=== PATIENT | female | born 1945 | race Caucasian/White ===

== ENCOUNTER 2017-04-10 11:19 | Day surgery (SDC) | payer MEDICARE, BC ==
[~2017-04-10 11:19] MED LIST: Buffered Lidocaine 0.9% SYRIN* 5 ML/SYR SYRINGE INTRADERM ONE
[2017-04-10] MEDS ORDERED: fentaNYL* 50 MCG/ML 2 ML VIAL (100 MCG VIAL) ONE (12:09)
[2017-04-10] MEDS ORDERED: Midazolam* 1 MG/ML 2 ML VIAL (2 MG) ONE ×2 (12:10→13:12)
[2017-04-10 13:44] VITALS: BP 119/75
[2017-04-10] MEDS ORDERED: Tetracaine 0.5% OPTH.SOL 4 ML* 1 DROP BTL ONE (14:25)
[2017-04-10] MEDS ORDERED: Lidocaine 1% MPF* 2 ML VIAL ONE (14:25)
[2017-04-10] MEDS ORDERED: Tropicamide 1% OPTH.SOL* BTL ONE (14:25)
[2017-04-10] MEDS ORDERED: Neomycin/Polymy/Dex OPHTH.OIN* 3.5 GM ONE (14:25)
[2017-04-10] MEDS ORDERED: Buffered Lidocaine 0.9% SYRIN* 5 ML/SYR SYRINGE ONE (14:25)
[2017-04-10] MEDS ORDERED: Flurbiprofen 0.03% OPTH.SOL* 2.5 ML BTL ONE (14:25)
[2017-04-10] MEDS ORDERED: Cyclopentolate 1% OPTH.SOL* 2 ML BTL ONE (14:25)
[2017-04-10] MEDS ORDERED: Phenylephrine 2.5% OPTH.SOL* 2 ML BTL ONE (14:25)
--- NOTE | 2017-04-11 03:01 | OP ---
DATE OF OPERATION: 04/10/17 - [facility] DATE OF : 47 SURGEON: Dr. Neftali Antonio. AUTO MACHINIST: None. ANESTHESIOLOGIST: Yury Flores DO ANESTHESIA: Topical with intravenous sedation. PRE-OP DIAGNOSIS: Cataract with glaucoma, left eye. POST-OP DIAGNOSIS: Cataract with glaucoma, left eye. OPERATIVE PROCEDURE: Phacoemulsification, cataract extraction with posterior chamber intraocular lens implant left eye and iStent placement left eye. COMPLICATIONS: None. BLOOD LOSS: None. DESCRIPTION OF PROCEDURE: The patient was brought to the operating room and received a small amount of intravenous sedation. A drop of Tetracaine was placed in her left eye. The patient was prepped and draped in the usual sterile fashion for ophthalmic surgery and attention was directed to the left eye where a speculum was placed. A para-centesis was created at the 5 o'clock position and 0.1 cc of 1% preservative-free lidocaine was injected into the anterior chamber followed by DisCoVisc. The eye was digitally stabilized while a 2.75 mm keratome was used to create a triplanar clear corneal incision at the 3 o'clock position. A continuous curvilinear capsulorrhexis was created with a cystotome and Utrata forceps. BSS on a cannula was used to hydrodissect the lens from the capsule. Phacoemulsification was performed in a divide-and- conquer technique to create 4 fragments which were removed. Residual cortical material was removed with irrigation and aspiration. DisCoVisc was used to inflate the capsular bag. An AU00T0 22.0 diopter lens was folded and inserted into the capsular bag. Supplemental DisCoVisc was used to deepen the anterior chamber and coat the corneal epithelium. The patient's head was rotated away from the surgeon and a microscope was rotated towards the surgeon. An iStent was placed into the anterior chamber and gonioprism was placed on the surface of the eye. Under direct visualization, the iStent was manipulated and inserted into the trabecular meshwork nasally. The iStent heat and vent aircraft mechanic and gonioprism were removed. The patient's head was returned to an upright position and the microscope was returned to a neutral position. Irrigation and aspiration was performed to remove viscoelastic from the eye. BSS on a cannula was used to hydrate the corneal stroma and seal the wound. At the end of the case the pupil was round and the lens was centered and stable. The eye pressure appeared normal. The iStent was in place. The wound was water tight. The speculum was removed and topical Maxitrol ointment was placed on the surface of the eye. The eye was closed, patched, and shielded, and the patient was sent to recovery room in stable condition with postop instructions and follow-up appointment given. [id number]/[facility] #: [id number] ASHLEY
== END 2017-04-10 13:51 | disposition home or self-care (01) ==
LOC: OREAST 11:19
PROVIDERS: ATTEND Ophthalmology
DX: H25.13 Age-related nuclear cataract, bilateral (principal); H40.1131 Primary open-angle glaucoma, bilateral, mild stage; I10 Essential (primary) hypertension; F32.9 Major depressive disorder, single episode, unspecified; M19.90 Unspecified osteoarthritis, unspecified site; Z88.8 Allergy status to other drugs, medicaments and biological substances; Z87.891 Personal history of nicotine dependence; G89.4 Chronic pain syndrome; E78.00 Pure hypercholesterolemia, unspecified
CPT/HCPCS: A9270-GY; C1783; J2250; J3010; V2632

== ENCOUNTER 2017-04-17 08:57 | Day surgery (SDC) | payer MEDICARE, BC ==
[~2017-04-17 08:57] MED LIST changes: +Acetaminophen TAB* 325 MG PO PRN; +Buffered Lidocaine 0.9% SYRIN* 5 ML/SYR SYRINGE ONE; +Cyclopentolate 1% OPTH.SOL* 2 ML BTL ONE; +Flurbiprofen 0.03% OPTH.SOL* 2.5 ML BTL ONE; +Lidocaine 1% MPF* 2 ML VIAL ONE; +Neomycin/Polymy/Dex OPHTH.OIN* 3.5 GM ONE; +Phenylephrine 2.5% OPTH.SOL* 2 ML BTL ONE; +Tetracaine 0.5% OPTH.SOL 4 ML* 1 DROP BTL ONE; +Tropicamide 1% OPTH.SOL* BTL ONE
[2017-04-17] MEDS ORDERED: Midazolam* 1 MG/ML 2 ML VIAL (2 MG) ONE ×2 (09:44→09:57)
[2017-04-17] MEDS ORDERED: fentaNYL* 50 MCG/ML 2 ML VIAL (100 MCG VIAL) ONE (09:44)
[2017-04-17 10:22] VITALS: BP 120/70
--- NOTE | 2017-04-18 04:20 | OP ---
DATE OF OPERATION: 04/17/17 - [facility] DATE OF : 47 SURGEON: Neftali Antonio MD WOOD BORER: None. ANESTHESIOLOGIST: Milagro Rodriguez MD ANESTHESIA: Topical with intravenous sedation. PRE-OP DIAGNOSIS: Cataract with glaucoma, right eye. POST-OP DIAGNOSIS: Cataract with glaucoma, right eye. OPERATIVE PROCEDURE: Phacoemulsification and cataract extraction with posterior chamber intraocular lens implant, right eye and iStent implant, right eye. COMPLICATIONS: None. BLOOD LOSS: None. DESCRIPTION OF PROCEDURE: The patient was brought to the operating room and given a small amount of intra-venous sedation. A drop of tetracaine was placed into her right eye. The patient was prepped and draped in the usual sterile fashion for ophthalmic surgery and attention was directed to the right eye where a speculum was placed. A paracentesis was created at the 11 o'clock position and 0.1 cc of 1% preservative-free lidocaine was injected into the anterior chamber followed by DisCoVisc. The eye was digitally stabilized while a 2.75-mm keratome was used to create a triplanar clear corneal incision at the 9 o'clock position. A continuous curvilinear capsulorrhexis was created using a cystotome and Utrata forceps. BSS on a cannula was used to hydrodissect the lens from the capsule. Phacoemulsification was performed in a divide-and- conquer technique to create 4 fragments, which were removed. Residual cortical material was removed with irrigation and aspiration. DisCoVisc was used to inflate the capsular bag. An AUOOTO 23.0 diopter lens was folded and inserted into the capsular bag. Supplemental DisCoVisc was then placed in the anterior chamber to deepen it. DisCoVisc was also placed on the surface of the eye. The patient's head was rotated away from the surgeon and the microscope was rotated toward the surgeon. A gonioprism was placed on the surface of the eye and iStent was introduced into the anterior chamber upon an medical practice administrator. Under direct visualization, the iStent was inserted into the nasal trabecular meshwork. The medical practice administrator and the gonioprism were removed. The patient's head and the microscope were returned to a neutral position. Viscoelastic was removed from the eye using irrigation and aspiration. BSS on a cannula was used to hydrate the corneal stroma and seal the wound. At the end of the case, the pupil was round, the lens was centered, the iStent was in place, the eye pressure appeared normal and the wound appeared watertight. The speculum was removed and topical Maxitrol ointment was placed on the surface of the eye. The eye was closed, patched and shielded, and the patient was sent to the recovery room in stable condition, with postop instructions and followup appointment given. [id number]/[facility] #: [id number] MTDMohsen
== END 2017-04-17 10:18 | disposition home or self-care (01) ==
LOC: OREAST 08:57
PROVIDERS: ATTEND Ophthalmology
DX: H25.11 Age-related nuclear cataract, right eye (principal); H40.9 Unspecified glaucoma; I10 Essential (primary) hypertension; E78.5 Hyperlipidemia, unspecified
CPT/HCPCS: A9270-GY; C1783; J2250; J3010; V2632

== ENCOUNTER 2018-12-11 07:30 | Inpatient (IN) | payer MEDICARE, OTHER ==
--- NOTE | 2018-12-08 21:02 | HP ---
PREOPERATIVE HISTORY AND PHYSICAL: DATE OF ADMISSION/SURGERY: 12/18/18 DATE OF OFFICE VISIT: 12/05/18 ATTENDING SURGEON: Dr. Trevor Morillo.* (DICTATED BY CUCA DAIGLE) PROCEDURE: Right total shoulder reverse. CHIEF COMPLAINT: Right shoulder pain. HISTORY OF PRESENT ILLNESS: Nichelle is a 73-year-old female who presents to clinic for right shoulder pain due to rotator cuff tear arthropathy. She has failed conservative measures and therefore, agreed to undergo a right total shoulder reverse with Dr. Morillo on 12/18/18. PAST MEDICAL HISTORY: Hypertension, high cholesterol, osteoarthritis, depression, history of alcohol addiction, IBS, osteopenia, and chronic back pain. PAST SURGICAL HISTORY: Right hand surgery, right total knee replacement, left arm surgery, cholecystectomy, and appendectomy. The patient denies prior complications with anesthesia. MEDICATIONS: 1. Celebrex 200 mg 1 by mouth twice a day. 2. Citalopram 30 mg 1 by mouth every day. 3. Seroquel 25 mg 3 tablets by mouth. 4. Lumigan 1 drop each eye. 5. Timolol 1 drop each eye. 6. Atorvastatin 10 mg 1 by mouth every day. 7. Hydrocodone/acetaminophen 5/325 mg 1 every 4 to 6 hours as needed. 8. Chlorthalidone 25 mg 1 by mouth every day. 9. Lorazepam 1 mg as needed. ALLERGIES: ADHESIVE TAPE. FAMILY HISTORY: Positive for hypertension and cancer. SOCIAL HISTORY: She is retired. She is a former smoker, quit 40 years ago. She reports rare alcohol consumption. She is left hand dominant. REVIEW OF SYSTEMS: A 14-point review of systems was completed and reviewed with the patient, positive for current complaint, otherwise negative. Denies fevers, chills, chest pain, shortness of breath, history of bleeding disorder, history of DVT or PE. PHYSICAL EXAMINATION GENERAL: A 73-year-old well-developed, well-nourished female in no acute distress. VITAL SIGNS: Height 68, weight 177. Pulse 94, blood pressure 140/96, respiratory rate 15, temperature 96.6. BMI 26.9. HEENT: Normocephalic, atraumatic. PERRLA. NECK: Supple. Throat clear. PULMONARY: Lungs are clear to auscultation bilaterally. No wheezing, rhonchi, or rales. CARDIAC: Regular rate and rhythm. S1 and S2. No murmurs, gallops, or rubs. No edema. ABDOMEN: Positive bowel sounds. Soft and nontender. NEUROLOGIC: Alert and oriented x3. Cranial nerves are grossly intact. MUSCULOSKELETAL: Right upper extremity: Skin is intact. No warmth or erythema. Forward flexion 150. Abduction 120. External rotation to 45. +4/5 strength to rotator cuff testing with pain. Positive impingement, Speed, Rodriguez-Da, [place]. +2 radial pulse. Sensation intact to light touch distally. DIAGNOSTIC STUDIES/LAB DATA: MRI revealed full thickness tear of the supraspinatus as well as subscapularis tendon. IMPRESSION: Right shoulder rotator cuff arthropathy. PLAN: The patient is scheduled to undergo right total shoulder reverse with Dr. Morillo on 12/18/18. She will follow up in 10 to 14 days postop for followup and suture removal. Oxycodone will be used for postop pain management. CUCA DAIGLE [id number]/[facility] #: [id number] MTDMohsen
[2018-12-17] MEDS ORDERED: Buffered Lidocaine 1% SYRIN* 1 ML/SYRINGE INTRADERM ONE (12:03)
[2018-12-18] MEDS ORDERED: Gabapentin CAP(*) 300 MG PO ONE (06:00)
[2018-12-18] MEDS ORDERED: Famotidine IV* 10 MG/ML 2 ML (20 mg) IV ONE (06:00)
[2018-12-18] MEDS ORDERED: Lactated Ringers 1000 ML Bag* 1,000 ML IV SCH (06:00)
--- OUTSIDE RECORDS SUMMARY | 2018-12-18 06:41 | XMS REPORT | Continuity of Care Document ---
:1945 External Reference #:[id number] Author Name Barbara Bales Care Team Providers Name Role Phone HCP/LW on file Primary Care Physician Unavailable Payers Date Identification Numbers Payment Provider Subscriber Effective: Policy Number: [id number] [place] [employer] Nichelle Hartman 2011 PayID: [id number] [address] [place] [address] Policy Number: [id number] [facility] Nichelle Hartman PayID: [id number] [address] [place] [address] Effective: 2011 Policy Number: [employer] Alicia/Ppo/Hmo/Pos Nichelle Hartman [id number] Expires: 2017 PayID: [id number] [address] [address] [place] [address] Advance Directives Description No Information Available Problems Date Description Provider Status Onset: 10/14/2004 Pure hypercholesterolemia Michelle Olivo M.D. Onset: 06/09/2005 Localized, primary osteoarthritis Tono Tyson Active of the hand Manolo Onset: 01/20/2009 Open-angle glaucoma Michelle Olivo M.D. Onset: 05/26/2013 Chronic pain syndrome Tono Tyson Active Manolo Onset: 12/16/2013 Chronic nonalcoholic liver disease Tono Tyson Active Manolo Onset: 07/10/2018 Impaired fasting glycaemia Ellie Trejo PA Active Onset: 06/15/2010 Essential hypertension Resolved Resolved: 05/26/2013 Family History Date Family Member(s) Observation Comments : (age 95 Father due to Old Age Years) : (age 78 Mother due to Stroke multiple strokes little Years) Mother Obesity Mother Depression Mother Gallbladder Disease Number of Siblings Siblings: 3 First Brother Lymphoma Second Brother AAA W OBST S/P BYPASS Third Brother Glaucoma Third Brother Hypertension Social History Type Date Description Comments Sex Unknown Education Highest level of education completed is college Marital Status Patient is Employment Not currently working retired other than dog trg Tobacco Use Reviewed: 04/06/17 Denies Cigarette Use Tobacco Use Start: Unknown End: Former Cigarette Smoker quit ~[id number] Unknown ETOH Use 04/06/2017 Occasionally consumes 1 glass of wine or alcohol a beer on Sundays Recreational Drug Use Denies Drug Use Tobacco Use Reviewed: 11/27/18 Non Smoker / No Tobacco Tobacco Use Start: Unknown End: Patient is a former Unknown smoker Smoking Status Reviewed: 11/27/18 Non Smoker / No Tobacco Exercise Type/Frequency Exercises regularly. Current Walks daily ~1mi, limited by achilles pain. Active around her home and w/ her dog. Sun Exposure Moderate amount of sun exposure. Uses sunscreen Seat Belt/Car Seat Always uses a seat belt Currently Active The patient is currently not sexually active Age 1st Kake First intercourse was at age 22 # Partners in a Lifetime The patient has had 1 sexual partner Allergies, Adverse Reactions, Alerts Date Description Reaction Status Severity Comments 04/06/2017 Bimatoprost Active redness 06/13/2004 NKDA Inactive Medications Medication Date Status Form Strength Qnty SIG Indications Ordering Provider Quetiapine Active Tablets 25mg 90tabs 3 tabs by Sopstella, Fumarate 017 mouth at Sergio, bedtime D.O. Escitalopram Active Tablets 10mg 30tabs 1 tablet Silcoff, Oxalate 017 daily in Cameron, the M.D. morning; for mood (take along with a 20mg tablet for total of 30mg) Escitalopram Active Tablets 20mg 30tabs 1 tablet Silcoff, Oxalate 017 daily in Cameron, the M.D. morning; for mood (take along with a 10mg tablet for total of 30mg) Chlorthalidone Active Tablets 25mg 90tabs take 1 Z01.818 Silcoff, 015 tablet by Cameron, mouth M.D. once daily Hydrocodone-Aceta Active Tablets 5-325mg 240tab 1-2 four M15.0 Sopmamta douglasophen 014 s times a Sergio, day as D.O. needed for pain M75.80 G89.4 Celebrex 05/22/2008 Active Capsules 200mg 180caps 1 by mouth M15.1 Cameron Pena, twice a day M.D. M15.0 Lorazepam Active Tablets 0.5mg 30tabs 1 po qhs for 333.99 Filler, sleep; january Dr Doyle repeat prn after 1 hr Atorvastatin Active Tablets 10mg 90tabs take 1 tablet Silcoff, Calcium by mouth once Cameron, daily M.DKelsey [facility] B-12 08/02/2015 - Hx Tablets 5000mc 180tabs or 1000mcg D51.8 Sopchak, 05/22/2017 Sub g sublingually Sergio, every 4 hours D.O. as needed for fatigue/redd/de pression Multivitamins 08/02/2015 - Hx Capsules 1 by mouth D51.8 Sopnafisak, 04/05/2017 once a day Sergio, D.O. Quetiapine 04/29/2015 - Hx Tablets 25mg 90tabs 3 tablets Silcoff, Fumarate 09/13/2017 daily in the Cameron, evening M.DKelsey Hydrocodone-Ceferino 07/21/2014 - Hx Solution 10-325 40units 1-2 q id prn 338.4 Tono taminophen 07/31/2014 mg/15M pain A. L Manolo Tyson Oxycodone/Aceta 12/12/2013 - Hx Tablets 5-325m Unknown minophen 02/25/2014 g Hydrocodone/Ceferino 11/21/2013 - Hx Tablets 5-325m 200tabs 1-2 four 715.09 Tono taminophen 04/06/2014 g times a day A. as needed stella Tyson M.D. 726.19 338.4 Valtrex 11/21/2013 - Hx Tablets 1gm 21tabs 1 tid for 053.9 Tono A. 11/28/2013 7 day Manolo Tyson Oxycodone/Acetamin 11/20/2013 - Hx Tablets 5-325m 15tabs 1-2 po Unknown ophen 11/20/2013 g q4h prn for severe pain Oxycodone/Acetamin 11/17/2013 - Hx Tablets 5-325m er med Unknown ophen 11/23/2013 g Cholestyramine 06/17/2012 - Hx Powder 4GM/Do 239.400gm 1 packet 787.91 Tono Bobby Light 11/21/2013 se or 1 elsa Tyson q M.DKelsey am prn 579.8 Lipitor 10/23/2011 - Hx Tablets 10mg 90tabs 1 po qd to 272.0 Silcoff, 02/24/2014 reduce Cameron, cholesterol M.DKelsey Amoxicillin/Cl 01/12/2011 - Hx Tablets 875-125 20tabs 1 tab po bid x 461.2 Silcoff, avulanate 04/13/2011 mg 10 Cameron, Potassium M.D. Fluconazole 01/12/2011 - Hx Tablets 150mg 2tabs 1 tab po q 461.2 Silcoff, 03/13/2012 week then 1 Cameron, tab 8 days M.D. later Lidoderm 06/15/2010 - Hx Patches 5% 15units 1 patch to on Silcoff, 12/14/2011 each knee q12h Cameron, on then q12h M.D. off [place] Nail 04/27/2010 - Hx Solution 8% 1bottle apply to nails 110.1 Silcokailee Lacquer 03/13/2012 [facility] Manolo Barnes Hydrocodone/Ac 03/31/2010 - Hx Tablets 5-325mg 200tabs 1-2 qid prn 715.09 Tono Bobby etaminophen 11/21/2013 pain Code D Manolo Tyson 715.14 726.19 Nasonex 01/31/2010 - Hx Suspension 50mcg/Act 1vial 2 sprays to 477.9 Tono 04/29/2015 both A. nostrils Neisha once daily M.DKelsey Tylenol Extra 06/10/2009 - Hx Tablets 500mg 2 tab po q [facility] Strength For 10/03/2009 6h prn pain A. Arthritis Pain Manolo Tyson Bufferin Extra 05/22/2008 - Hx Tablets 500mg 2 tabs q [facility] Strength 05/22/2008 6hsalternate A. s w/other genna Tyson M.D. Amoxicillin 08/12/2007 - Hx Capsules 250mg 30caps 1 tid for 465.9 [facility] 08/22/2007 ten days Kanu Tyson M.D. void after 10 days Triamcinolone 10/06/2006 - Hx Cream 0.1% 30gm Apply To Tono Acetonide 04/27/2008 Affected A. Area bid And orin Tysonn M.DKelsey Pain/Itch For Maximum 10 Days Ultravate 04/05/2006 - Hx Cream 0.05% 50gm apply to 692.6 Tono 04/12/2006 affected A. area tid for Neisha 7 days max M.DKelsey Prilosec 04/05/2006 - Hx Capsules 20mg 30caps 1 po qd 719.41 [facility] 05/05/2006 Kanu Tyson M.D. Lipitor 02/15/2006 - Hx Tablets 10 90tabs 1 qpm for [facility] 12/28/2009 cholesterol Kanu Tyson M.D. Ibuprofen 12/01/2005 - Hx Tablets 800mg 100tab 1 po tid 789.04 Silcoff, 05/22/2008 s p.c.prn for stella Barnes M.D. Pyridium 11/28/2005 - Hx Tablets 100mg 18tabs 1-2 PO tid 788.1 Silcoff, 04/16/2006 prn Bladder Stella Barnes M.D. Celexa 06/09/2005 - Hx Tablets 40mg 1 and A 1/2 Silcoff, 05/22/2008 po qd Manolo Barnes Naftin 12/09/2004 - Hx Gel 1% 60gm apply to 110.1 [facility] 04/27/2009 affected A. area qd Manolo Tyson Prednisone 06/20/2004 - Hx Tablets 10mg 50tabs 2 a day for 053.9 Tono 12/09/2004 a week then A. 1 and 1/2 a Neisha, day for a M.DKelsey week then 1 a day for a week Valtrex 06/13/2004 - Hx Caplets 1,000mg 14caps 1 tid for a 053.9 Tono 06/20/2004 total of 7 A. days with charly Tyson M.D. you got Vicodin Es 06/13/2004 - Hx Tablets 7.5mg;750 20tabs 1/2-1 po q 053.9 Tono 12/09/2004 mg 6hr as A. needed for stella Tyson M.D. Neurontin 04/01/2004 - Hx Tablets 600[facility] Manolo Sánchez Neurontin 04/01/2004 - Hx Tablets 600mg 20tabs [facility] (pleaseotify Princess, patient that Deena.D. you have the prescription . Lipitor 11/17/2003 - Hx Tablets 10mg 90tabs 1 qpm at [facility] 02/15/2006 supper for Kanu Tyson M.D. Flonase 11/17/2003 - Hx [place] 50mcg/[place] 1units 1 intranasal [facility] 01/17/2009 bid Kanu Tyson M.D. Celexa 09/25/2003 - Hx Tablets 20mg 30tabs 1 po qd Silcoff, 06/09/2005 Manolo Barnes Tamiflu 09/11/2003 - Hx Capsules 75mg 10caps 1 po bid X 5 Silcoff, 06/13/2004 Days Manolo Barnes Effexor XR - Hx Capsules 150mg 0caps 1 po qd Unknown 06/09/2005 Seroquel - Hx Tablets 200mg 0tabs 2 po qhs Filler, 12/10/2014 Dr Doyle Celexa - Hx Tablets 40mg 1 PO qd Filler, 05/26/2013 Dr Doyle Timolol Maleate - Hx Solution 0.5% 1 drop both Unknown 05/22/2017 eyes Lumigan - Hx Solution 1 gtt eye Unknown 04/06/2017 hs, Both eyes Hydrocodone/Ceferino - Hx Tablets 5-325mg Unknown taminophen 11/20/2013 Amoxicillin - Hx Capsules 500mg Unknown 12/15/2013 Medications Administered in Office Medication Date Status Form Strength Qnty SIG Indications Ordering Provider B12 Injection Administered Injection Sopchak, 015 Sergio, D.O. SC/Im Administered Injection Sopchak, Injections 015 Sergio, D.O. injection, Administered Injection Tono bridges, 10 mg 009 Manolo Tyson injection, Administered Injection Tono bridges, 10 mg 009 Manolo Tyson Immunizations CPT Code Status Date Vaccine Lot # [id number] Given 10/30/2018 Shingrix Zoster (Shingles) Vaccine (HZV) Recomb,Subnit,Adjuvanted 66587 Given 05/23/2017 Influenza Virus Vaccine, Quadrivalent, Split, [id number] Preservative Free 53304 Given 05/19/2016 Influenza Vaccine Split Virus Preservative Free Im [id number] U-Flu Given 07/12/2015 Influenza,Unspecified 48472 Given 04/30/2015 Prevnar 13 [id number] 16311 Given 06/17/2012 Flu, Split Virus 3Yrs [id number] 40892 Given 10/23/2011 Pneumococcal Immunization [id number] 89702 Given 07/07/2011 Zostavax [id number] 12138 Given 05/11/2011 Flu, Split Virus 3Yrs 61249 Given 05/11/2011 Flu, Split Virus 3Yrs 75809 Given 06/15/2010 Flu, Split Virus 3Yrs [id number] 33550 Given 02/18/2010 Adacel or Boostrix, TDaP [id number] 98327 Given 06/10/2009 Flu, Split Virus 3Yrs [id number] 29485 Given 07/04/2008 Flu, Split Virus 3Yrs [id number] 45051 Given 07/19/2007 Flu, Split Virus 3Yrs [id number] 04749 Given 08/20/2006 Flu, Split Virus 3Yrs [id number] 35653 Given 06/30/2005 Flu, Split Virus 3Yrs 13350 Given 06/30/2005 Flu, Split Virus 3Yrs 48144 Given 10/14/2004 Td Immunization [id number] Refused 05/29/2014 Flu, Split Virus 3Yrs Vital Signs Date Vital Result Comment 11/27/2018 3:49pm BP Systolic 126 mmHg BP Diastolic 76 mmHg Heart Rate 87 /min O2 % BldC Oximetry 96 % Body Temperature 97.8 F Height 67 inches 5'7" Weight 174.00 lb w/shoes BMI (Body Mass Index) 27.2 kg/m2 07/10/2018 2:00pm BP Systolic 142 mmHg BP Diastolic 78 mmHg BP Systolic Recheck 136 mmHg BP Diastolic Recheck 78 mmHg Height 67 inches 5'7" Weight 168.00 lb BMI (Body Mass Index) 26.3 kg/m2 05/23/2017 9:33am BP Systolic 126 mmHg BP Diastolic 74 mmHg Weight 174.00 lb 04/06/2017 3:42pm BP Systolic 120 mmHg BP Diastolic 60 mmHg Height 67 inches 5'7" Weight 172.00 lb BMI (Body Mass Index) 26.9 kg/m2 2016 2:26pm BP Systolic 116 mmHg BP Diastolic 70 mmHg Heart Rate 70 /min Respiratory Rate 16 /min Height 68 inches 5'8" Weight 176.00 lb BMI (Body Mass Index) 26.8 kg/m2 05/19/2016 1:11pm BP Systolic 136 mmHg BP Diastolic 72 mmHg Weight 173.00 lb 01/14/2016 1:00pm BP Systolic 120 mmHg BP Diastolic 70 mmHg Weight 175.00 lb with sneakers 10/15/2015 1:02pm BP Systolic 128 mmHg k BP Diastolic 78 mmHg k Heart Rate 70 /min Respiratory Rate 16 /min Height 68.25 inches 5'8.25" with sneakers Weight 170.50 lb with sneakers BMI (Body Mass Index) 25.7 kg/m2 08/02/2015 12:57pm BP Systolic 150 mmHg BP Diastolic 94 mmHg BP Systolic Recheck 158 mmHg recheck BP Diastolic Recheck 85 mmHg recheck 07/23/2015 3:17pm BP Systolic 172 mmHg BP Diastolic 98 mmHg 07/12/2015 5:11pm BP Systolic 152 mmHg BP Diastolic 90 mmHg Weight 172.00 lb with shoes 04/30/2015 4:31pm BP Systolic 122 mmHg BP Diastolic 66 mmHg Heart Rate 70 /min Respiratory Rate 16 /min Weight 171.00 lb 12/11/2014 1:49pm BP Systolic 150 mmHg BP Diastolic 86 mmHg Height 68 inches 5'8" shoes on Weight 172.00 lb shoes on BMI (Body Mass Index) 26.1 kg/m2 08/28/2014 10:02am BP Systolic 130 mmHg BP Diastolic 84 mmHg Weight 171.00 lb 05/29/2014 11:35am BP Systolic 148 mmHg BP Diastolic 92 mmHg Height 67 inches Weight 167.00 lb BMI (Body Mass Index) 26.2 kg/m2 03/16/2014 11:00am BP Systolic 128 mmHg BP Diastolic 82 mmHg Heart Rate 80 /min Height 67 inches 5'7" Weight 169.00 lb BMI (Body Mass Index) 26.5 kg/m2 12/16/2013 3:40pm BP Systolic 176 mmHg wk obese cuff BP Diastolic 94 mmHg wk obese cuff Heart Rate 70 /min Weight 175.00 lb 11/21/2013 11:24am BP Systolic 148 mmHg BP Diastolic 105 mmHg Heart Rate 80 /min rrr Height 67.5 inches 5'7.50" Weight 174.00 lb BMI (Body Mass Index) 26.8 kg/m2 05/26/2013 10:04am BP Systolic 146 mmHg BP Diastolic 92 mmHg BP Systolic Recheck 139 mmHg BP Diastolic Recheck 82 mmHg Heart Rate 70 /min Height 67 inches 5'7" Weight 171.00 lb BMI (Body Mass Index) 26.8 kg/m2 12/23/2012 10:06am BP Systolic 136 mmHg BP Diastolic 82 mmHg Weight 173.00 lb 10/21/2012 11:58am BP Systolic 132 mmHg BP Diastolic 82 mmHg Weight 174.00 lb Last Menstrual Period 0 09/23/2012 9:08am BP Systolic 128 mmHg BP Diastolic 98 mmHg BP Systolic Recheck 13 mmHg BP Diastolic Recheck 85 mmHg Heart Rate 70 /min Weight 173.00 lb Last Menstrual Period 0 08/24/2012 9:41am BP Systolic 138 mmHg BP Diastolic 94 mmHg Weight 173.00 lb Last Menstrual Period 0 06/17/2012 2:27pm BP Systolic 144 mmHg BP Diastolic 88 mmHg Heart Rate 80 /min Respiratory Rate 16 /min Height 67 inches 5'7" Weight 175.00 lb BMI (Body Mass Index) 27.4 kg/m2 Last Menstrual Period 0 03/14/2012 10:44am BP Systolic 126 mmHg BP Diastolic 80 mmHg Weight 170.00 lb 12/18/2011 12:54pm BP Systolic 154 mmHg BP Diastolic 78 mmHg BP Systolic Recheck 141 mmHg BP Diastolic Recheck 80 mmHg Heart Rate 65 /min Respiratory Rate 16 /min Weight 172.00 lb Last Menstrual Period 0 10/23/2011 1:09pm BP Systolic 138 mmHg BP Diastolic 90 mmHg BP Systolic Recheck 130 mmHg BP Diastolic Recheck 73 mmHg Heart Rate 70 /min rrr Weight 168.00 lb Last Menstrual Period 0 09/25/2011 9:20am BP Systolic 143 mmHg BP Diastolic 84 mmHg Heart Rate 75 /min Height 67.5 inches 5'7.50" Weight 171.00 lb BMI (Body Mass Index) 26.4 kg/m2 07/07/2011 11:47am BP Systolic 123 mmHg BP Diastolic 71 mmHg Heart Rate 67 /min Weight 168.00 lb 04/14/2011 2:17pm BP Systolic 138 mmHg BP Diastolic 74 mmHg Heart Rate 80 /min Respiratory Rate 16 /min Height 67 inches 5'7" Weight 169.00 lb BMI (Body Mass Index) 26.5 kg/m2 01/12/2011 11:41am BP Systolic 120 mmHg BP Diastolic 78 mmHg Heart Rate 75 /min Body Temperature 98.3 F Height 66.75 inches 5'6.75" Weight 171.00 lb BMI (Body Mass Index) 27.0 kg/m2 Last Menstrual Period 0 08/15/2010 11:18am BP Systolic 108 mmHg BP Diastolic 77 mmHg Heart Rate 70 /min Weight 168.00 lb 07/06/2010 10:53am BP Systolic 131 mmHg BP Diastolic 87 mmHg Heart Rate 70 /min Body Temperature 98.9 F Weight 167.00 lb 06/15/2010 9:02am BP Systolic 146 mmHg BP Diastolic 90 mmHg Heart Rate 63 /min Weight 165.00 lb 05/18/2010 1:09pm BP Systolic 108 mmHg BP Diastolic 70 mmHg Weight 163.00 lb Last Menstrual Period 0 04/27/2010 2:00pm BP Systolic 130 mmHg BP Diastolic 83 mmHg Heart Rate 67 /min Weight 164.00 lb 02/18/2010 3:04pm BP Systolic 118 mmHg please recheck this BP Diastolic 82 mmHg please recheck this Heart Rate 80 /min Respiratory Rate 16 /min Height 66.75 inches 5'6.75" Weight 166.00 lb BMI (Body Mass Index) 26.2 kg/m2 Last Menstrual Period 0 unknown 02/12/2010 10:31am BP Systolic 116 mmHg BP Diastolic 80 mmHg Body Temperature 98.1 F Weight 172.00 lb Last Menstrual Period 0 01/31/2010 12:26pm BP Systolic 142 mmHg BP Diastolic 78 mmHg Heart Rate 73 /min Weight 174.00 lb 01/14/2010 9:57am BP Systolic 120 mmHg BP Diastolic 70 mmHg BP Systolic Recheck 140 mmHg pt's wrist monitor she brought in BP Diastolic Recheck 79 mmHg pt's wrist monitor she brought in Heart Rate 65 /min 01/10/2010 10:20am BP Systolic 163 mmHg BP Diastolic 74 mmHg BP Systolic Recheck 134 mmHg BP Diastolic Recheck 90 mmHg Heart Rate 61 /min Weight 174.00 lb 12/28/2009 1:58pm BP Systolic 134 mmHg BP Diastolic 88 mmHg Weight 176.00 lb 08/27/2009 9:13am BP Systolic 124 mmHg BP Diastolic 82 mmHg Weight 174.00 lb Last Menstrual Period 0 06/10/2009 11:00am BP Systolic 130 mmHg BP Diastolic 80 mmHg Weight 169.00 lb 04/27/2009 2:16pm BP Systolic 112 mmHg BP Diastolic 74 mmHg Weight 169.00 lb 01/29/2009 2:31pm BP Systolic 114 mmHg BP Diastolic 86 mmHg Heart Rate 80 /min Respiratory Rate 16 /min Height 67 inches 5'7" Weight 170.00 lb w/out shoes BMI (Body Mass Index) 26.6 kg/m2 05/22/2008 1:30pm BP Systolic 118 mmHg BP Diastolic 74 mmHg Height 68 inches 5'8" Weight 169.50 lb BMI (Body Mass Index) 25.8 kg/m2 02/04/2008 12:58pm BP Systolic 110 mmHg BP Diastolic 78 mmHg Height 68 inches 5'8" Weight 169.00 lb BMI (Body Mass Index) 25.7 kg/m2 Last Menstrual Period 0 12/31/2007 3:02pm BP Systolic 130 mmHg BP Diastolic 70 mmHg Height 68 inches 5'8" Weight 168.00 lb BMI (Body Mass Index) 25.5 kg/m2 Last Menstrual Period 0 12/03/2007 1:24pm BP Systolic 132 mmHg BP Diastolic 80 mmHg Height 68 inches 5'8" Weight 170.00 lb BMI (Body Mass Index) 25.8 kg/m2 10/28/2007 2:48pm BP Systolic 130 mmHg BP Diastolic 78 mmHg Height 68 inches 5'8" Weight 167.00 lb BMI (Body Mass Index) 25.4 kg/m2 Last Menstrual Period 0 09/02/2007 3:42pm BP Systolic 110 mmHg BP Diastolic 70 mmHg Height 68 inches 5'8" Weight 166.00 lb BMI (Body Mass Index) 25.2 kg/m2 Last Menstrual Period 0 08/12/2007 4:00pm BP Systolic 138 mmHg BP Diastolic 82 mmHg Respiratory Rate 16 /min Body Temperature 98.6 F Height 68 inches 5'8" Weight 169.00 lb BMI (Body Mass Index) 25.7 kg/m2 Last Menstrual Period 0 07/19/2007 9:59am BP Systolic 128 mmHg BP Diastolic 70 mmHg Heart Rate 80 /min Height 68 inches 5'8" Weight 168.00 lb BMI (Body Mass Index) 25.5 kg/m2 06/11/2007 1:24pm BP Systolic 130 mmHg BP Diastolic 80 mmHg Height 68 inches 5'8" Weight 170.00 lb BMI (Body Mass Index) 25.8 kg/m2 Last Menstrual Period 0 04/22/2007 11:12am BP Systolic 150 mmHg BP Diastolic 84 mmHg Body Temperature 98.1 F Height 68 inches 5'8" Weight 174.00 lb BMI (Body Mass Index) 26.5 kg/m2 04/16/2007 1:15pm BP Systolic 162 mmHg BP Diastolic 78 mmHg Height 68 inches 5'8" Weight 174.00 lb BMI (Body Mass Index) 26.5 kg/m2 03/21/2007 12:57pm BP Systolic 132 mmHg BP Diastolic 80 mmHg Height 68 inches 5'8" Weight 174.00 lb BMI (Body Mass Index) 26.5 kg/m2 Last Menstrual Period 0 02/08/2007 11:16am BP Systolic 144 mmHg BP Diastolic 70 mmHg Height 68 inches 5'8" Weight 177.50 lb BMI (Body Mass Index) 27.0 kg/m2 11/19/2006 9:11am BP Systolic 144 mmHg BP Diastolic 82 mmHg Heart Rate 80 /min Respiratory Rate 16 /min Height 68 inches 5'8" Weight 175.00 lb BMI (Body Mass Index) 26.6 kg/m2 08/20/2006 1:55pm BP Systolic 138 mmHg BP Diastolic 86 mmHg BP Systolic Recheck 130 mmHg BP Diastolic Recheck 80 mmHg Heart Rate 80 /min Respiratory Rate 16 /min Height 68 inches 5'8" Weight 173.00 lb BMI (Body Mass Index) 26.3 kg/m2 05/17/2006 1:50pm BP Systolic 140 mmHg BP Diastolic 80 mmHg Heart Rate 80 /min Respiratory Rate 16 /min Height 68 inches 5'8" Weight 172.00 lb BMI (Body Mass Index) 26.1 kg/m2 04/05/2006 2:06pm BP Systolic 112 mmHg BP Diastolic 70 mmHg Body Temperature 98.5 F Height 68 inches 5'8" Weight 165.00 lb BMI (Body Mass Index) 25.1 kg/m2 Last Menstrual Period 0 02/13/2006 2:56pm BP Systolic 144 mmHg BP Diastolic 80 mmHg Heart Rate 80 /min Height 68 inches 5'8" Weight 164.00 lb BMI (Body Mass Index) 24.9 kg/m2 12/01/2005 5:15pm BP Systolic 190 mmHg BP Diastolic 105 mmHg Height 68 inches 5'8" Weight 160.00 lb BMI (Body Mass Index) 24.3 kg/m2 11/28/2005 11:26am BP Systolic 124 mmHg BP Diastolic 74 mmHg Body Temperature 97.9 F Height 68 inches 5'8" Weight 162.00 lb BMI (Body Mass Index) 24.6 kg/m2 10/27/2005 11:53am BP Systolic 130 mmHg BP Diastolic 66 mmHg Height 68 inches 5'8" Weight 162.00 lb BMI (Body Mass Index) 24.6 kg/m2 06/09/2005 1:17pm BP Systolic 160 mmHg BP Diastolic 78 mmHg BP Systolic Recheck 142 mmHg BP Diastolic Recheck 75 mmHg Heart Rate 70 /min rrr Respiratory Rate 16 /min Height 68 inches 5'8" Weight 163.00 lb BMI (Body Mass Index) 24.8 kg/m2 12/09/2004 4:38pm BP Systolic 128 mmHg BP Diastolic 78 mmHg Height 68 inches 5'8" Weight 166.00 lb BMI (Body Mass Index) 25.2 kg/m2 10/14/2004 10:34am BP Systolic 140 mmHg BP Diastolic 70 mmHg Heart Rate 80 /min RRR Respiratory Rate 16 /min Height 68 inches 5'8" Weight 170.00 lb BMI (Body Mass Index) 25.8 kg/m2 Last Menstrual Period [id number] 07/04/2004 5:02pm Height 68 inches 5'8" Weight 176.00 lb BMI (Body Mass Index) 26.8 kg/m2 06/20/2004 1:41pm BP Systolic 142 mmHg BP Diastolic 90 mmHg Heart Rate 90 /min Body Temperature 98.1 F Height 68 inches 5'8" Weight 179.00 lb BMI (Body Mass Index) 27.2 kg/m2 06/13/2004 5:26pm BP Systolic 140 mmHg BP Diastolic 90 mmHg Height 68 inches 5'8" Weight 177.00 lb BMI (Body Mass Index) 26.9 kg/m2 06/10/2004 4:01pm Heart Rate 80 /min 06/10/2004 3:25pm BP Systolic 126 mmHg BP Diastolic 86 mmHg Heart Rate 80 /min Respiratory Rate 16 /min Body Temperature 97.9 F Weight 179.00 lb Results Test Date Facility Test Result H/L Range Note Creatinine 08/14/2018 [facility] Creatinine 0.94 mg/dL N 0.51-0.95 [phone] Egfr Non- 58.7 >60 Egfr 71.0 >60 1 Laboratory test 08/14/2018 [facility] Blood Urea Nitrogen 22 mg/dL N 6-24 finding [phone] BUN Urinalysis Profile 07/16/2018 [facility] Urine Color Yellow [phone] Urine Appearance Clear Urine Specific [place] 1.028 N 1.010-1.030 Urine pH 5.0 N 5-9 Urine Urobilinogen Negative Negative Urine Ketones Trace Abnormal Negative Urine Protein 1+(30 mg/dL) Abnormal Negative Urine Leukocytes Negative Negative Urine Blood 2+ Abnormal Negative Urine Nitrite Negative Negative Urine Bilirubin Negative Negative Urine Glucose Negative Negative Urine White Blood Cell Absent Absent Urine Red Blood Cell 2+(6-10/hpf) Abnormal Absent Urine Bacteria Absent Absent Urine Squamous Epithelial Cell Present Abnormal Absent Laboratory test 07/15/2018 [facility] Hemoglobin A1c 5.9 % High 4.0- 5.6 2 finding [phone] (Glyco HGB) Lipid Profile 07/15/2018 [facility] Triglycerides 168 mg/dL 3 (Trig/Chol/HDL) [phone] Cholesterol 159 mg/dL 4 HDL Cholesterol 34.2 mg/dL 5 LDL Cholesterol 91 mg/dL 6 Comp Metabolic Panel 07/15/2018 [facility] Sodium 139 mmol/L N 135- 145 [phone] Potassium 4.0 mmol/L N 3.5-5.0 Chloride 104 mmol/L N 101-111 Co2 Carbon Dioxide 26 mmol/L N 22-32 Anion Gap 9 mmol/L N 2-11 Glucose 131 mg/dL High 70-100 Blood Urea Nitrogen 17 mg/dL N 6-24 Creatinine 0.85 mg/dL N 0.51-0.95 BUN/Creatinine Ratio 20.0 N 8-20 Calcium 9.8 mg/dL N 8.6-10.3 Total Protein 6.9 g/dL N 6.4-8.9 Albumin 4.4 g/dL N 3.2-5.2 Globulin 2.5 g/dL N 2-4 Albumin/Globulin Ratio 1.8 N 1-3 Total Bilirubin 1.00 mg/dL N 0.2-1.0 Alkaline Phosphatase 61 U/L N 34-104 Alt 19 U/L N 7-52 Ast 20 U/L N 13-39 Egfr Non- 65.9 >60 Egfr 79.8 >60 7 Laboratory test 05/23/2017 In House Hemoglobin A1c 5.8 finding Basic Metabolic Panel 04/09/2017 [facility] Sodium 138 mmol/L N 133- 145 [phone] Potassium 3.8 mmol/L N 3.5-5.0 Chloride 103 mmol/L N 101-111 Co2 Carbon Dioxide 28 mmol/L N 22-32 Anion Gap 7 mmol/L N 2-11 Glucose 128 mg/dL High 70-100 Blood Urea Nitrogen 20 mg/dL N 6-24 Creatinine 0.90 mg/dL N 0.51-0.95 BUN/Creatinine Ratio 22.2 High 8-20 Calcium 9.2 mg/dL N 8.6-10.3 Egfr Non- 61.9 N >60 Egfr 79.6 N >60 8 Laboratory test finding 04/09/2017 [facility] Alt 21 U/L N 7-52 [phone] Lipid Profile 04/09/2017 [facility] Triglycerides 192 mg/dL N 9 (Trig/Chol/HDL) [phone] Cholesterol 169 mg/dL N 10 HDL Cholesterol 28.4 mg/dL N 11 LDL Cholesterol 102 mg/dL N 12 Lipid Profile 10/15/2015 [facility] Triglycerides 221 mg/dL N 13 (Trig/Chol/HDL) [phone] Cholesterol 176 mg/dL N 14 HDL Cholesterol 36.4 mg/dL N 15 LDL Cholesterol 95 mg/dL N 16 Basic Metabolic Panel 10/15/2015 [facility] Sodium 136 mmol/L N 133- 145 [phone] Potassium 4.2 mmol/L N 3.5-5.0 Chloride 101 mmol/L N 101-111 Co2 Carbon Dioxide 28 mmol/L N 22-32 Anion Gap 7 mmol/L N 2-11 Glucose 99 mg/dL N 70-100 Blood Urea Nitrogen 18 mg/dL N 6-24 Creatinine 0.90 mg/dL N 0.51-0.95 BUN/Creatinine Ratio 20.0 N 8-20 Calcium 9.5 mg/dL N 8.6-10.3 Egfr Non- 62.1 N >60 Egfr 79.8 N >60 17 Laboratory test 10/15/2015 [facility] Ast (Sgot) 16 U/L N 13-39 18 finding [phone] Laboratory test 07/23/2015 [facility] Erythrocyte Sed Rate 18 mm/Hr N 0-40 finding [phone] TSH (Thyroid Stim Horm) 1.27 ?IU/mL N 0.34-5.60 Troponin-I (TnI) 0.00 ng/mL N <0.03 19 D Dimer Quantitative < 200 ng/mL N Less Than 230 20 Vitamin B12 202 pg/mL N [phone] 21 Comp Metabolic Panel 07/23/2015 [facility] Sodium 135 mmol/L N 133- 145 [phone] Potassium 4.4 mmol/L N 3.5-5.0 Chloride 102 mmol/L N 101-111 Co2 Carbon Dioxide 28 mmol/L N 22-32 Anion Gap 5 mmol/L N 2-11 Glucose 100 mg/dL N 70-100 Blood Urea Nitrogen 13 mg/dL N 6-24 Creatinine 0.70 mg/dL N 0.51-0.95 BUN/Creatinine Ratio 18.6 N 8-20 Calcium 9.6 mg/dL N 8.6-10.3 Total Protein 6.8 g/dL N 6.4-8.9 Albumin 4.4 g/dL N 3.2-5.2 Globulin 2.4 g/dL N 2-4 Albumin/Globulin Ratio 1.8 N 1-3 Total Bilirubin 0.70 mg/dL N 0.2-1.0 Alkaline Phosphatase 55 U/L N 34-104 Alt 13 U/L N 7-52 Ast 15 U/L N 13-39 Egfr Non- 83.2 N >60 Egfr 107.0 N >60 22 CBC Auto Diff 07/23/2015 [facility] White Blood Count 6.7 10^3/uL N 4.8-10.8 [phone] Red Blood Count 5.00 10^6/uL N 4.0-5.4 Hemoglobin 15.4 g/dL N 12.0-16.0 Hematocrit 46 % N 35-47 Mean Corpuscular Volume 93 fL N 80-97 Mean Corpuscular Hemoglobin 31 pg N 27-31 Mean Corpuscular HGB Conc 33 g/dL N 31-36 Red Cell Distribution Width 13 % N 10.5-15 Platelet Count 259 10^3/uL N 150-450 Mean Platelet Volume 7 um3 Low 7.4-10.4 Abs Neutrophils 4.0 10^3/uL N 1.5-7.7 Abs Lymphocytes 1.8 10^3/uL N 1.0-4.8 Abs Monocytes 0.7 10^3/uL N 0-0.8 Abs Eosinophils 0.1 10^3/uL N 0-0.6 Abs Basophils 0.1 10^3/uL N 0-0.2 Abs Nucleated RBC 0 10^3/uL N Granulocyte % 59.3 % N 38-83 Lymphocyte % 27.2 % N 25-47 Monocyte % 10.5 % High 1-9 Eosinophil % 1.5 % N 0-6 Basophil % 1.5 % N 0-2 Nucleated Red Blood Cells % 0.1 N Urine Drug Screen Inhouse 07/12/2015 In House Ua Cocaine - Ua Opiates + Ua Amphetamines - Urine Methanphetamines - Urine Benzodiazepines QN [place] + Urine Oxycodone QL + Lipid Profile 08/28/2014 [facility] Triglycerides 151 mg/dL N 23 (Trig/Chol/HDL) [phone] Cholesterol 136 mg/dL N 24 HDL Cholesterol 36.0 mg/dL N 25 LDL Cholesterol 70 mg/dL N 26 Laboratory test finding 08/28/2014 [facility] Ast 15 U/L N 13-39 [phone] Urine Micro Inhouse 03/16/2014 In House Ua WBC - Ua RBC 5-6 Ua Casts - Ua Epi many Ua Other sm clumps of RBC Ua Glucose - Ua Bilirubin - Ua Ketones - Ua Specific [place] 1.030 Ua Blood mod Ua PH 6.0 Ua Protein 1+ Ua Urobilinogen - Ua Nitrite - Ua Leukocytes - Urine Micro Inhouse 12/16/2013 In House Ua WBC - Ua RBC 12-14 Ua Casts - Ua Epi 0-2 Ua Other - Ua Glucose - Ua Bilirubin - Ua Ketones - Ua Specific [place] 1.025 Ua Blood 3+ Ua PH 6.0 Ua Protein tr Ua Urobilinogen - Ua Nitrite - Ua Leukocytes - Laboratory test finding 12/12/2013 [facility] Inr 0.93 0.85-1.06 [phone] Activated Partial Thrombo Time 32.5 seconds 24.0-36.1 CBC Auto Diff 12/12/2013 [facility] White Blood Count 6.6 10^3/uL 4.8-10.8 [phone] Red Blood Count 4.74 10^6/uL 4.0-5.4 Hemoglobin 14.9 g/dL 12.0-16.0 Hematocrit 43 % 35-47 Mean Corpuscular Volume 91 fL 80-97 Mean Corpuscular Hemoglobin 31 pg 27-31 Mean Corpuscular HGB Conc 35 g/dL 31-36 Red Cell Distribution Width 13 % 10.5-15 Platelet Count 254 10^3/uL 150-450 Mean Platelet Volume 7 um3 Low 7.4-10.4 Abs Neutrophils 3.8 10^3/uL 1.5-7.7 Abs Lymphocytes 1.9 10^3/uL 1.0-4.8 Abs Monocytes 0.6 10^3/uL 0-0.8 Abs Eosinophils 0.1 10^3/uL 0-0.6 Abs Basophils 0.1 10^3/uL 0-0.2 Abs Nucleated RBC 0.01 10^3/uL Granulocyte % 57.8 % 38-83 Lymphocyte % 29.4 % 25-47 Monocyte % 9.7 % High 1-9 Eosinophil % 2.0 % 0-6 Basophil % 1.1 % 0-2 Nucleated Red Blood Cells % 0.1 Comp Metabolic Panel 12/12/2013 [facility] Sodium 137 mmol/L 133- 145 [phone] Potassium 4.8 mmol/L 3.7-5.6 Chloride 106 mmol/L 101-111 Co2 Carbon Dioxide 25 mmol/L 22-32 Anion Gap 6 mmol/L 2-11 Glucose 112 mg/dL High 70-100 Blood Urea Nitrogen 13 mg/dL 6-24 Creatinine 0.67 mg/dL 0.51-0.95 BUN/Creatinine Ratio 19.4 8-20 Calcium 9.5 mg/dL 8.6-10.3 Total Protein 6.9 g/dL 6.4-8.9 Albumin 4.6 g/dL 3.2-5.2 Globulin 2.3 g/dL 2-4 Albumin/Globulin Ratio 2.0 1-3 Total Bilirubin 0.60 mg/dL 0.2-1.0 Alkaline Phosphatase 55 U/L 34-104 Alt 26 U/L 7-52 Ast 24 U/L 13-39 Egfr Non- 87.8 >60 Egfr 112.9 >60 27 Laboratory test finding 12/12/2013 [facility] Lipase 24 U/L 11.0- 82.0 [phone] Creatine Kinase 86 U/L 10-223 Troponin I 0.00 ng/mL <0.03 28 C Reactive Protein 1.42 mg/L < 5.00 29 Urinalysis 12/12/2013 [facility] Urine Color Yellow [phone] Urine Appearance Clear Urine Specific [place] 1.016 1.010-1.030 Urine Esterase Trace Abnormal Negative Urine Nitrate Negative Negative Urine Urobilinogen Negative E.U./dL Negative Urine Protein Negative mg/dL Negative Urine pH 7.0 5-9 Urine Blood 1+ Abnormal Negative Urine Ketones Negative mg/dL Negative Urine Bilirubin Negative Negative Urine Glucose Negative mg/dL Negative Urine Microscopic 12/12/2013 [facility] Urine WBC 1+ (<10 /hpf) None Seen [phone] Urine RBC 2+ (>3-10 /hpf) None Seen Urine Epithelial Cells 2+ Squamous /hpf None Seen Bacteria Urine 1+ None Seen Crystals Urine Amorphous /lpf None Seen Urine Culture And 12/12/2013 [facility] Urine Culture (SEE NOTE) 30 Sensitivities [phone] Urine Microscopic 11/17/2013 [facility] Urine WBC None Seen None Seen [phone] Urine RBC 1+ (<3 /hpf) None Seen Urine Epithelial Cells 1+ Squamous /hpf None Seen Bacteria Urine 1+ None Seen Urinalysis 11/17/2013 [facility] Urine Color Yellow [phone] Urine Appearance Clear Urine Specific [place] 1.019 1.010-1.030 Urine Esterase Negative Negative Urine Nitrate Negative Negative Urine Urobilinogen Negative E.U./dL Negative Urine Protein Trace mg/dL Abnormal Negative Urine pH 6.5 5-9 Urine Blood 2+ Abnormal Negative Urine Ketones Negative mg/dL Negative Urine Bilirubin Negative Negative Urine Glucose Negative mg/dL Negative Laboratory test 11/17/2013 [facility] Troponin I < 0.01 ng/mL <0.03 31 finding [phone] CKMB 11/17/2013 [facility] CKMB ng/mL 2.5 ng/mL 0.6-6.3 [phone] Laboratory test 11/17/2013 [facility] Activated 32.9 seconds 24.0- 36.1 finding [phone] Partial Thrombo Time Amylase 47 U/L 29-103 Lipase 24 U/L 11.0-82.0 Creatine Kinase 85 U/L 10-223 Inr/Protime 11/17/2013 [facility] Inr 0.95 0.85-1.06 [phone] Laboratory test 11/17/2013 [facility] Erythrocyte Sed 14 mm/Hr 0-40 finding [phone] Rate CBC Auto Diff 11/17/2013 [facility] White Blood Count 5.5 4.8-10.8 [phone] 10^3/uL Red Blood Count 4.77 10^6/uL 4.0-5.4 Hemoglobin 14.9 g/dL 12.0-16.0 Hematocrit 43 % 35-47 Mean Corpuscular Volume 91 fL 80-97 Mean Corpuscular Hemoglobin 31 pg 27-31 Mean Corpuscular HGB Conc 34 g/dL 31-36 Red Cell Distribution Width 13 % 10.5-15 Platelet Count 242 10^3/uL 150-450 Mean Platelet Volume 7 um3 Low 7.4-10.4 Abs Neutrophils 3.2 10^3/uL 1.5-7.7 Abs Lymphocytes 1.7 10^3/uL 1.0-4.8 Abs Monocytes 0.5 10^3/uL 0-0.8 Abs Eosinophils 0 10^3/uL 0-0.6 Abs Basophils 0.1 10^3/uL 0-0.2 Abs Nucleated RBC 0 10^3/uL Granulocyte % 57.6 % 38-83 Lymphocyte % 31.2 % 25-47 Monocyte % 9.3 % High 1-9 Eosinophil % 0.8 % 0-6 Basophil % 1.1 % 0-2 Nucleated Red Blood Cells % 0.1 Laboratory test 11/17/2013 [facility] C Reactive 1.35 mg/L High Less than 32 finding [phone] Protein 5.0 Comp Metabolic 11/17/2013 [facility] Sodium 138 mmol/L 133-145 Panel [phone] Potassium 4.6 mmol/L 3.7-5.6 Chloride 104 mmol/L 101-111 Co2 Carbon Dioxide 27 mmol/L 22-32 Anion Gap 7 mmol/L 2-11 Glucose 135 mg/dL High 70-100 Blood Urea Nitrogen 12 mg/dL 6-24 Creatinine 0.75 mg/dL 0.51-0.95 BUN/Creatinine Ratio 16.0 8-20 Calcium 9.7 mg/dL 8.6-10.3 Total Protein 7.1 g/dL 6.4-8.9 Albumin 4.6 g/dL 3.2-5.2 Globulin 2.5 g/dL 2-4 Albumin/Globulin Ratio 1.8 1-3 Total Bilirubin 0.70 mg/dL 0.2-1.0 Alkaline Phosphatase 54 U/L 34-104 Alt 23 U/L 7-52 Ast 22 U/L 13-39 Egfr Non- 77.1 >60 Egfr 99.1 >60 33 Basic Metabolic Panel 09/22/2013 [facility] Sodium 137 mmol/L 133- 145 [phone] Potassium 4.4 mmol/L 3.5-5.0 Chloride 104 mmol/L 101-111 Co2 Carbon Dioxide 27.0 mmol/L 22-32 Anion Gap 6.0 mmol/L 2-11 Glucose 121 mg/dL High 70-100 Blood Urea Nitrogen 11 mg/dL 6-24 Creatinine 0.70 mg/dL 0.50-1.40 BUN/Creatinine Ratio 15.7 8-20 Calcium 9.4 mg/dL 8.1-9.9 Egfr Non- 83.7 >60 Egfr 107.7 >60 34 Lipid Profile 09/22/2013 [facility] Triglycerides 170 mg/dL 40-200 (Trig/Chol/HDL) [phone] Cholesterol 165 mg/dL Less than 200 HDL Cholesterol 37 mg/dL Low 40-60 35 Cholesterol/HDL Ratio 4.5 Average High 1-4.44 LDL Cholesterol 94.0 Less Than 100 36 Laboratory test 09/22/2013 [facility] Ast 26 U/L 12-42 37 finding [phone] CBC Auto Diff 10/21/2012 [facility] White Blood 5.8 10^3/uL 4.8- 10.8 [phone] Count Red Blood Count 4.27 10^6/uL 4.0-5.4 Hemoglobin 13.7 g/dL 12.0-16.0 Hematocrit 40 % 35-47 Mean Corpuscular Volume 94 fL 80-97 Mean Corpuscular Hemoglobin 32 pg High 27-31 Mean Corpuscular HGB Conc 34 g/dL 31-36 Red Cell Distribution Width 13 % 10.5-15 Platelet Count 231 10^3/uL 150-450 Mean Platelet Volume 8 um3 7.4-10.4 Abs Neutrophils 2.6 10^3/uL 1.5-7.7 Abs Lymphocytes 2.3 10^3/uL 1.0-4.8 Abs Monocytes 0.7 10^3/uL 0-0.8 Abs Eosinophils 0.1 10^3/uL 0-0.6 Abs Basophils 0.1 10^3/uL 0-0.2 Abs Nucleated RBC 0 10^3/uL Granulocyte % 44.7 % 38-83 Lymphocyte % 40.1 % 25-47 Monocyte % 11.9 % High 1-9 Eosinophil % 2.4 % 0-6 Basophil % 0.9 % 0-2 Nucleated Red Blood Cells % 0 Lipid Profile 10/21/2012 [facility] Triglycerides 198 mg/dL 40-200 (Trig/Chol/HDL) [phone] Cholesterol 177 mg/dL Less than 200 HDL Cholesterol 36 mg/dL Low 40-60 38 Cholesterol/HDL Ratio 4.9 Average High 1-4.44 LDL Cholesterol 101.4 mg/dL High Less Than 100 39 Basic Metabolic Panel 10/21/2012 [facility] Sodium 135 mmol/L 133- 145 [phone] Potassium 4.3 mmol/L 3.5-5.0 Chloride 106 mmol/L 101-111 Co2 Carbon Dioxide 23.0 mmol/L 22-32 Anion Gap 6.0 mmol/L 2-11 Glucose 98 mg/dL 70-100 Blood Urea Nitrogen 13 mg/dL 6-24 Creatinine 0.70 mg/dL 0.50-1.40 BUN/Creatinine Ratio 18.6 8-20 Calcium 9.3 mg/dL 8.1-9.9 Egfr Non- 83.7 >60 Egfr 107.7 >60 40 Liver Function Panel 10/21/2012 [facility] Total Protein 6.4 g/dL 6.2-8.4 [phone] Albumin 4.2 g/dL 3.2-5.2 Globulin 2.2 g/dL 2-4 Albumin/Globulin Ratio 1.9 1-3 Total Bilirubin 0.8 mg/dL 0.4-1.5 Direct Bilirubin 0.2 mg/dL 0.1-0.5 Indirect Bilirubin 0.6 mg/dL 0.3-1.0 Alkaline Phosphatase 55 U/L 30-110 Alt 24 U/L 14-54 Ast 25 U/L 12- Surgical 09/06/2012 [facility] S RUN DATE: Pathology [phone] 09/11/ <SEE NOTE> CBC Auto Diff 03/04/2012 [facility] White Blood 6.6 CUMM 4.8-10. 43 [phone] Count 8 Red Cell Count 4.11 CUMM Low 4.2-5.4 Hemoglobin 13.2 g/dL 12.0-16.0 Hematocrit 39 % 35-47 Mean Corpuscular Volume 94 um3 79-97 Mean Corpuscular Hemoglob 32 pg High 27-31 Mean Corpuscular HGB Cone 34 g/dL 32-36 Redcell Distribution WDTH 14 % 10.5-15 Platelet Count 277 CUMM 150-450 Mean Platelet Volume 7.3 um3 Low 7.4-10.4 Gran % 45.8 % 38-83 Lymph % 40.5 % 25-47 Mononuclear % 10.0 % High 1-9 Eosinophil % 3.0 % 0-6 Basophil % 0.7 % 0-2 Abs Lymphs 2.7 1.0-4.8 Abs Mononuclear 0.7 0-0.8 Absolute Neutrophil Count 3.0 1.5-7.7 Abs Eosinophils 0.2 0-0.6 Abs Basophils 0 0-0.2 Basic Metabolic Panel 03/04/2012 [facility] Sodium 140 mmol/L 135- 145 [phone] Potassium 4.9 mmol/L 3.5-5.0 Chloride 110 mmol/L 101-111 Co2 (Carbon Dioxide) 28.0 mmol/L 22-32 Anion Gap 2.0 mmol/L 2-11 44 Glucose 102 mg/dL High 70-100 BUN 26 mg/dL High 6-24 Creatinine 0.9 mg/dL 0.50-1.40 One Over Creatinine 1.11 BUN/Creatinine Ratio 28.9 High 8-20 Calcium 9.4 mg/dL 8.1-9.9 eGFR Non- 62.8 > 60 eGFR 80.8 > 60 45 Laboratory test finding 12/08/2011 [facility] Ast (Sgot) 24 U/L 12- 42 [phone] Lipid Profile 12/08/2011 [facility] Triglyceride 199 mg/dL 40-200 (Trig/Chol/HDL) [phone] Cholesterol 189 mg/dL Less Than 200 46 High Density Lipoprotein 37 mg/dL Low 40-60 47 Cholesterol/HDL Ratio 5.11 AVERAGE High 1-4.44 Low Density Lipoprotein 112 mg/dL High Less Than 100 48 Xray 11/10/2011 [facility] Medicine X-Ray, Wrist, wnl x djd of Complete, Min. Of 3 1st cmc Views R Xray 11/01/2011 [facility] Dexa Bone Density wnl 49 Study One Or More Sites Axial Skeleton Urine Micro 10/23/2011 In House Ua WBC - Inhouse Ua RBC 0-3 Ua Casts - Ua Epi 0-2 Ua Other - Ua Glucose - Ua Bilirubin - Ua Ketones - Ua Specific [place] 1.030 Ua Blood 3+ Ua PH 5.0 Ua Protein tr Ua Urobilinogen - Ua Nitrite - Ua Leukocytes - Urine Drug Screen Inhouse 10/23/2011 In House Urine THC Screen NEG Ua Cocaine NEG Ua Opiates POS Ua Amphetamines NEG Urine Methanephrine Random NEG Urine Phenyclidine GC/MS NEG Urine Mdma QN Random NEG Ua Barbiturates NEG Urine Benzodiazepines QN [place] POS Ua Methadone NEG Urine Tricyclc Antidepress RND POS Urine Oxycodone QL NEG Lipid Profile 10/16/2011 [facility] Triglyceride 209 mg/dL High 40- 200 50 (Trig/Chol/HDL) [phone] Cholesterol 276 mg/dL High Less Than 200 51 High Density Lipoprotein 36 mg/dL Low 40-60 52 Cholesterol/HDL Ratio 7.67 AVERAGE High 1-4.44 Low Density Lipoprotein 198 mg/dL High Less Than 100 53 Laboratory test finding 10/16/2011 [facility] Ast (Sgot) 25 U/L 12- 42 [phone] Comp Metabolic Panel 10/16/2011 [facility] Sodium 140 mmol/L 135- 145 [phone] Potassium 4.5 mmol/L 3.5-5.0 Chloride 109 mmol/L 101-111 Co2 (Carbon Dioxide) 24.0 mmol/L 22-32 Anion Gap 7.0 mmol/L 2-11 54 Glucose 110 mg/dL High 70-100 BUN 14 mg/dL 6-24 Creatinine 0.7 mg/dL 0.50-1.40 One Over Creatinine 1.42 BUN/Creatinine Ratio 20.0 8-20 Calcium 9.3 mg/dL 8.1-9.9 Total Protein 6.5 GM/DL 6.2-8.1 Albumin 4.0 GM/DL 3.2-5.2 Globulin 2.5 GM/DL 2-4 Albumin/Globulin Ratio 1.6 1-3 Bilirubin Total 0.9 mg/dL 0.4-1.5 55 Alkaline Phosphatase 44 U/L 30-110 Alt (SGPT) 22 U/L 14-54 eGFR Non- 84.0 > 60 eGFR 108.0 > 60 56 Laboratory test 04/14/2011 [facility] Cytology <SEE 57 finding [phone] NOTE> Urine Micro Inhouse 04/14/2011 In House Ua WBC 2-6 Ua RBC 0-1 Ua Casts - Ua Epi 2-3 Ua Other - Ua Glucose - Ua Bilirubin - Ua Ketones - Ua Specific [place] 1.030 Ua Blood mod Ua PH 5.0 Ua Protein - Ua Urobilinogen - Ua Nitrite - Ua Leukocytes tr Xray 06/15/2010 [facility] Medicine X-Ray, Shoulder, unremarkable Left, Min. Of 2 Views Xray 03/08/2010 [facility] Mammography, nl [facility], [place] [address] Bilateral [phone] Laboratory test 02/12/2010 [facility] Erythrocyte Sed 13 MM/HR 0-30 finding [phone] Rate Basic Metabolic 02/12/2010 [facility] Sodium 137 mmol/L 135-14 Panel [phone] Potassium 4.4 mmol/L 3.5-5.0 Chloride 104 mmol/L 101-111 Co2 (Carbon Dioxide) 27.0 mmol/L 22-32 Anion Gap 6.0 mmol/L 2-11 58 Glucose 90 mg/dL 70-100 59 BUN 13 mg/dL 6-24 Creatinine 0.80 mg/dL 0.50-1.40 One Over Creatinine 1.20 BUN/Creatinine Ratio 16.3 8-20 Calcium 8.9 mg/dL 8.1-9.9 60 eGFR Non- 77.0 > 60 eGFR 93.2 > 60 61 Liver Function Panel 02/12/2010 [facility] Total Protein 6.1 GM/DL Low 6.2-8.1 [phone] Albumin 4.1 GM/DL 3.2-5.2 Globulin 2.0 GM/DL 2-4 Albumin/Globulin Ratio 2.1 1-3 Bilirubin Total 1.2 mg/dL 0.4-1.5 62 Bilirubin Direct 0.1 mg/dL 0.1-0.5 Indirect Bilirubin 1.1 mg/dL High 0.1-0.75 Alkaline Phosphatase 51 U/L 30-110 Alt (SGPT) 20 U/L 14-54 Ast (Sgot) 23 U/L 12-42 CBC With Electronic 02/12/2010 [facility] White Blood 4.8 CUMM 4.8- 10.8 Diff [phone] Count Red Cell Count 4.25 CUMM 4.2-5.4 Hemoglobin 13.5 g/dL 12.0-16.0 Hematocrit 39 % 35-47 Mean Corpuscular Volume 92 um3 79-97 Mean Corpuscular Hemoglob 32 pg High 27-31 Mean Corpuscular HGB Cone 35 g/dL 32-36 Redcell Distribution WDTH 13 % 10.5-15 Platelet Count 256 CUMM 150-450 Mean Platelet Volume 7.3 um3 Low 7.4-10.4 Gran % 47.5 % 38-83 Lymph % 37.5 % 25-47 Mononuclear % 10.9 % High 1-9 Eosinophil % 3.6 % 0-6 Basophil % 0.5 % 0-2 Abs Lymphs 1.8 1.0-4.8 Abs Mononuclear 0.5 0-0.8 Absolute Neutrophil Count 2.3 1.5-7.7 Abs Eosinophils 0.2 0-0.6 Abs Basophils 0 0-0.2 Urine Micro Inhouse 02/12/2010 In House Ua WBC 5-10 Ua RBC 2-5 Ua Casts - Ua Epi 2-4 Ua Other - Ua Glucose - Ua Bilirubin - Ua Ketones - Ua Specific [place] 1.020 Ua Blood 2+ Ua PH 5.0 Ua Protein - Ua Urobilinogen - Ua Nitrite - Ua Leukocytes 2+ Lipid Profile 02/12/2010 [facility] Triglyceride 155 mg/dL 40-200 (Trig/Chol/HDL) [phone] Cholesterol 232 mg/dL High Less Than 200 63 High Density Lipoprotein 29 mg/dL Low 40-60 64 Cholesterol/HDL Ratio 8.00 AVERAGE High 1-4.44 Low Density Lipoprotein 172 mg/dL High Less Than 100 65 Order 01/10/2010 [facility] Ua inhouse Sm Amt Blood NOted EKG W/ Reading [place] CBC With Electronic 01/10/2010 [facility] White Blood 6.0 CUMM 4.8- 10.8 Diff [phone] Count Red Cell Count 4.44 CUMM 4.2-5.4 Hemoglobin 14.1 g/dL 12.0-16.0 Hematocrit 41 % 35-47 Mean Corpuscular Volume 91 um3 79-97 Mean Corpuscular Hemoglob 32 pg High 27-31 Mean Corpuscular HGB Cone 35 g/dL 32-36 Redcell Distribution WDTH 13 % 10.5-15 Platelet Count 257 CUMM 150-450 Mean Platelet Volume 7.3 um3 Low 7.4-10.4 Gran % 52.9 % 38-83 Lymph % 33.7 % 25-47 Mononuclear % 10.5 % High 1-9 Eosinophil % 2.3 % 0-6 Basophil % 0.6 % 0-2 Abs Lymphs 2.0 1.0-4.8 Abs Mononuclear 0.6 0-0.8 Absolute Neutrophil Count 3.2 1.5-7.7 Abs Eosinophils 0.1 0-0.6 Abs Basophils 0 0-0.2 Comp Metabolic Panel 01/10/2010 [facility] Sodium 136 mmol/L 135- 145 [phone] Potassium 4.7 mmol/L 3.5-5.0 Chloride 101 mmol/L 101-111 Co2 (Carbon Dioxide) 28.0 mmol/L 22-32 Anion Gap 7.0 mmol/L 2-11 66 Glucose 98 mg/dL 70-100 67 BUN 15 mg/dL 6-24 Creatinine 0.80 mg/dL 0.50-1.40 One Over Creatinine 1.20 BUN/Creatinine Ratio 18.8 8-20 Calcium 9.1 mg/dL 8.1-9.9 68 Total Protein 6.0 GM/DL Low 6.2-8.1 Albumin 3.9 GM/DL 3.2-5.2 Globulin 2.1 GM/DL 2-4 Albumin/Globulin Ratio 1.9 1-3 Bilirubin Total 0.8 mg/dL 0.4-1.5 69 Alkaline Phosphatase 50 U/L 30-110 Alt (SGPT) 18 U/L 14-54 Ast (Sgot) 19 U/L 12-42 eGFR Non- 77.0 > 60 eGFR 93.2 > 60 70 Ua Inhouse 01/10/2010 In House Ua Glucose - Ua Bilirubin - Ua Ketones - Ua Specific [place] 1.010 Ua Blood sml Ua PH 6.0 Ua Protein - Ua Urobilinogen - Ua Nitrite - Ua Leukocytes - Lipid Profile 11/09/2009 [facility] Triglyceride 112 mg/dL 40-200 (Trig/Chol/HDL) [phone] Cholesterol 158 mg/dL Less Than 200 71 High Density Lipoprotein 35 mg/dL Low 40-60 72 Cholesterol/HDL Ratio 4.51 AVERAGE High 1-4.44 Low Density Lipoprotein 101 mg/dL High Less Than 100 73 Laboratory test finding 11/09/2009 [facility] Ast (Sgot) 22 U/L 12- 42 [phone] Xray 02/17/2009 [facility] Dexa Scan nl [place], [place] [id number] [phone] Mammography, Screening, Bilateral nl Lipid Profile 02/16/2009 [facility] Triglyceride 119 mg/dL 40-200 (Trig/Chol/HDL) [phone] Cholesterol 144 mg/dL Less Than 200 74 High Density Lipoprotein 36 mg/dL Low 40-60 75 Cholesterol/HDL Ratio 4.00 AVERAGE 1-4.44 Low Density Lipoprotein 84 mg/dL Less Than 100 76 Laboratory test 02/16/2009 [facility] Ast (Sgot) 20 U/L 12-42 finding [phone] CBC With Electronic 02/16/2009 [facility] White Blood 5.2 CUMM 4.8- 10.8 Diff [phone] Count Red Cell Count 4.47 CUMM 4.2-5.4 Hemoglobin 13.8 g/dL 12.0-16.0 Hematocrit 39 % 35-47 Mean Corpuscular Volume 88 um3 79-97 Mean Corpuscular Hemoglob 31 pg 27-31 Mean Corpuscular HGB Cone 35 g/dL 32-36 Redcell Distribution WDTH 13 % 10.5-15 Platelet Count 265 CUMM 150-450 Mean Platelet Volume 7.2 um3 Low 7.4-10.4 Gran % 53.4 % 38-83 Lymph % 31.4 % 25-47 Mononuclear % 10.6 % High 1-9 Eosinophil % 4.0 % 0-6 Basophil % 0.6 % 0-2 Abs Lymphs 1.6 1.0-4.8 Abs Mononuclear 0.6 0-0.8 Absolute Neutrophil Count 2.8 1.5-7.7 Abs Eosinophils 0.2 0-0.6 Abs Basophils 0 0-0.2 Laboratory test finding 01/29/2009 [facility] Cytology nl 77 [phone] Ua Inhouse 01/29/2009 In House Ua Glucose - 78 Ua Bilirubin - Ua Ketones - Ua Specific [place] 1.010 Ua Blood h tr Ua PH 5.0 Ua Protein - Ua Urobilinogen - Ua Nitrite - Ua Leukocytes - Urine Micro 01/29/2009 In House Urine Microscopic see result Inhouse Inhouse note Laboratory test 11/26/2007 [facility] Ast (Sgot) 22 U/L 12-42 79 finding [phone] Lipid Profile 11/26/2007 [facility] Cholesterol/HDL 4.28 AVERAGE 1- 4.44 (Trig/Chol/HDL) [phone] Ratio Cholesterol 171 mg/dL Less Than 200 80 Triglyceride 82 mg/dL 40-200 High Density Lipoprotein 40 mg/dL 40-60 Low Density Lipoprotein 115 mg/dL High Less Than 100 81 Laboratory test 10/27/2007 [facility] Troponin-I (TnI) 0.01 NG/ML 0- 0.06 82 finding [phone] BNP Evaluatr 13.70 pg/mL 7.5-100 CMP 10/27/2007 [facility] One Over Creatinine 1.25 [phone] Anion Gap 4.0 mmol/L 2-11 83 Albumin/Globulin Ratio 1.4 1-3 Albumin 3.9 GM/DL 3.2-5.2 Alkaline Phosphatase 51 U/L 30-110 Alt (SGPT) 16 U/L 14-54 Ast (Sgot) 23 U/L 12-42 BUN 15 mg/dL 6-24 Calcium 8.3 mg/dL Low 8.7-10.2 Chloride 110 mmol/L 101-111 Co2 (Carbon Dioxide) 23.0 mmol/L 22-32 Globulin 2.7 GM/DL 2-4 Glucose 101 mg/dL 70-105 Potassium 3.9 mmol/L 3.5-5.0 Sodium 137 mmol/L 135-145 Bilirubin Total 0.4 mg/dL 0.4-1.5 Total Protein 6.6 GM/DL 6.2-8.1 BUN/Creatinine Ratio 18.8 8-20 Creatinine 0.8 mg/dL 0.5-1.4 Laboratory test 10/27/2007 [facility] D Dimer < 200 NG/ML < 230 84 finding [phone] Quantitative CBC With 10/27/2007 [facility] White Blood Count 7.3 CUMM 4.8-10.8 Electronic Diff [phone] Stat Abs Basophils 0.1 0-0.2 Abs Eosinophils 0.2 0-0.6 Absolute Neutrophil Count 4.1 1.5-7.7 Abs Lymphs 2.3 1.0-4.8 Abs Mononuclear 0.6 0-0.8 Basophil % 1.5 % 0-2 Hematocrit 38 % 35-47 Hemoglobin 13.6 g/dL 12.0-16.0 Eosinophil % 2.7 % 0-6 Gran % 55.6 % 38-83 Lymph % 31.8 % 20-45 Mean Corpuscular HGB Cone 36 g/dL 32-36 Mean Corpuscular Hemoglob 31 pg 27-31 Mean Corpuscular Volume 88 um3 79-97 Mean Platelet Volume 6.7 um3 Low 7.4-10.4 Mononuclear % 8.4 % 1-9 Platelet Count 298 CUMM 150-450 Red Cell Count 4.32 CUMM 4.2-5.4 Redcell Distribution WDTH 12 % 10.5-15 Xray 07/10/2007 [facility], [address] [facility] [address]ilateral, [place] [address] [phone] Laboratory test 04/22/2007 In House Culture Throat Rapid - finding Screen Culture Throat - Xray 04/16/2007 [facility] Medicine X-Ray, Clavicle, wo change 85 Complete, Bilateral Lipid Profile 03/15/2007 [facility] Cholesterol/HDL 5.39 AVERAGE High 1-4.44 (Trig/Chol/HDL) [phone] Ratio Cholesterol 167 mg/dL Less Than 200 86 Triglyceride 106 mg/dL 40-200 High Density Lipoprotein 31 mg/dL Low 40-60 87 Low Density Lipoprotein 115 mg/dL High Less Than 100 88 Laboratory test finding 03/15/2007 [facility] Ast (Sgot) 21 U/L 12- 42 [phone] Ua Inhouse 11/19/2006 In House Ua Glucose - Ua Bilirubin - Ua Ketones - Ua Specific [place] 1.020 Ua Blood + Ua PH 6.0 Ua Protein - Ua Urobilinogen - Ua Nitrite - Ua Leukocytes + Laboratory test 11/19/2006 In House Urine Microscopic 1-5wbc,rbc,epi finding Inhouse Lipid Profile 05/12/2006 [facility] Cholesterol/HDL 5.03 AVERAGE High 1-4.4 (Trig/Chol/HDL) [phone] Ratio 4 Cholesterol 181 mg/dL Less Than 200 89 Triglyceride 151 mg/dL 40-200 High Density Lipoprotein 36 mg/dL Low 40-60 90 Low Density Lipoprotein 115 mg/dL High Less Than 100 91 Laboratory test 05/12/2006 [facility] Ast (Sgot) 18 U/L 12-42 finding [phone] Lipid Profile 02/13/2006 [facility] Cholesterol/HD 4.60 AVERAGE High 1-4.44 (Trig/Chol/HDL) [phone] L Ratio Cholesterol 207 mg/dL High Less Than 200 92 Triglyceride 95 mg/dL 40-200 High Density Lipoprotein 45 mg/dL 40-60 Low Density Lipoprotein 143 mg/dL High Less Than 100 93 Laboratory test 02/13/2006 [facility] Ast (Sgot) 21 U/L 12-42 finding [phone] Laboratory test 12/01/2005 [facility] Esr Sedimentation Rate 15 finding CBC With Electronic 12/01/2005 [facility] White Blood Count 12.6 Diff RBC Red Blood Count 4.62 Hemoglobin 14.4 Hematocrit 41 MCV (Corpuscular Volume) 89 MCH (Corpuscular Hemoglobin) 31 MCHC (Corpuscular Hemog Conc) 35 RDW 12 Platelet Count 329 MPV 6.4 Lymphocytes 8 Monocytes 5 Eosinophils 1 Absolute Neutrophils 10.8 CMP Panel 12/01/2005 [facility] Albumin 4.2 Alt - SGPT 16 Calcium 9.5 Carbon Dioxide 27.0 Chloride 104 Creatinine 0.8 Glucose Serum 110 Alkaline Phosphatase 61 Potassium 3.9 Protien Total 6.8 Sodium 138 Ast - Sgot 21 BUN - Urea Nitrogen 16 Ua Inhouse 12/01/2005 In House Ua Glucose NEG Ua Bilirubin NEG Ua Ketones NEG Ua Specific [place] 1.010 Ua Blood +2 Ua Protein NEG Ua Urobilinogen NEG Ua Nitrite NEG Ua Leukocytes NEG Laboratory test 12/01/2005 In House Urine Microscopic NEG finding Inhouse Culture Urine 11/28/2005 In House Presumptive 10 to the High mixed growth 94 Inhouse 3rd Ua Inhouse 11/28/2005 In House Ua Glucose NEG Ua Bilirubin NEG Ua Ketones NEG Ua Specific [place] 1.010 Ua Blood MODERATE Ua PH 5.0 Ua Protein NEG Ua Urobilinogen NEG Ua Nitrite NEG Ua Leukocytes NEG Laboratory test 11/28/2005 In House Urine Microscopic OCC. EPI & WBC finding Inhouse Lipid Profile 06/09/2005 [facility] Cholesterol/HDL 3.59 AVERAGE 1- 4.44 (Trig/Chol/HDL) [phone] Ratio Cholesterol 165 mg/dL Less Than 200 95 Triglyceride 103 mg/dL 40-200 High Density Lipoprotein 46 mg/dL 40-60 Low Density Lipoprotein 98 mg/dL Less Than 100 96 Laboratory test 06/09/2005 [facility] Ast (Sgot) 24 U/L 12-42 finding [phone] Lipid Profile 10/14/2004 [facility] Cholesterol 163 mg/dL Less Than 200 97 (Trig/Chol/HDL) [phone] Triglyceride 93 mg/dL 40-200 High Density Lipoprotein 54 mg/dL 40-60 Low Density Lipoprotein 90 mg/dL Less Than 100 98 Cholesterol/HDL Ratio 3.02 AVERAGE 1-4.44 Laboratory test finding 10/14/2004 [facility] Ast (Sgot) 23 U/L 12- 42 [phone] Comp Metabolic Panel 10/14/2004 [facility] Anion Gap 6.0 mmol/L 2- 11 99 [phone] Albumin/Globulin Ratio 1.7 1-3 Albumin 4.0 GM/DL 3.6-5.4 Alkaline Phosphatase 71 U/L 30-110 Alt (SGPT) 20 U/L 14-54 BUN 13 mg/dL 6-24 Calcium 9.7 mg/dL 8.7-10.2 Chloride 109 mmol/L 101-111 Co2 (Carbon Dioxide) 28.0 mmol/L 22-32 Creatinine 0.7 mg/dL 0.5-1.4 Globulin 2.3 GM/DL 2-4 Glucose 86 mg/dL 70-105 Potassium 4.5 mmol/L 3.5-5.0 Sodium 143 mmol/L 135-145 Bilirubin Total 0.7 mg/dL 0.4-1.5 Total Protein 6.3 GM/DL 6.2-8.1 BUN/Creatinine Ratio 18.6 8-20 Laboratory test finding 10/14/2004 [facility] TSH 2.21 MIU/ML 0.34- 5.60 [phone] LDL Direct 103 mg/dL High Less Than 100 100 Ua Inhouse 10/14/2004 In House Ua Glucose NEG Ua Bilirubin NEG Ua Ketones NEG Ua Specific [place] 1.030 Ua Blood NEG Ua PH 6.0 Ua Protein NEG Ua Urobilinogen NEG Ua Nitrite NEG Ua Leukocytes NEG Laboratory test finding 10/14/2004 In House Urine Microscopic Inhouse NEG 1 Because ethnic data is not always readily available, this report includes an eGFR for both -Americans and non- Americans. The National Kidney Disease Education Program (NKDEP) does not endorse the use of the MDRD equation for patients that are not between the ages of 18 and 70, are , have extremes of body size, muscle mass, or nutritional status, or are non- or non-. According to the National Kidney Foundation, irrespective of diagnosis, the stage of the disease is based on the level of kidney function: Stage Description GFR(mL/min/1.73 m(2)) 1 Kidney damage with normal or decreased GFR 90 2 Kidney damage with mild decrease in GFR 60-89 3 Moderate decrease in GFR 30-59 4 Severe decrease in GFR 15-29 5 Kidney failure <15 (or dialysis) 2 Therapeutic target for the treatment of diabetes mellitus patients is <7% HBA1C, and in selective patients <6.0%. Please refer to [place] [employer] diabetic care guidelines for further information. 3 Desirable: <150 Borderline High: 150-199 High: 200-499 Very High: >500 4 Desirable: <200 Borderline High: 200-239 High: >239 5 Low: <40 Desirable: 40-60 High: >60 6 Desirable: <100 Near Optimal: 100-129 Borderline High: 130-159 High: 160-189 Very High: >189 7 Because ethnic data is not always readily available, this report includes an eGFR for both -Americans and non- Americans. The National Kidney Disease Education Program (NKDEP) does not endorse the use of the MDRD equation for patients that are not between the ages of 18 and 70, are , have extremes of body size, muscle mass, or nutritional status, or are non- or non-. According to the National Kidney Foundation, irrespective of diagnosis, the stage of the disease is based on the level of kidney function: Stage Description GFR(mL/min/1.73 m(2)) 1 Kidney damage with normal or decreased GFR 90 2 Kidney damage with mild decrease in GFR 60-89 3 Moderate decrease in GFR 30-59 4 Severe decrease in GFR 15-29 5 Kidney failure <15 (or dialysis) 8 Because ethnic data is not always readily available, this report includes an eGFR for both -Americans and non- Americans. The National Kidney Disease Education Program (NKDEP) does not endorse the use of the MDRD equation for patients that are not between the ages of 18 and 70, are , have extremes of body size, muscle mass, or nutritional status, or are non- or non-. According to the National Kidney Foundation, irrespective of diagnosis, the stage of the disease is based on the level of kidney function: Stage Description GFR(mL/min/1.73 m(2)) 1 Kidney damage with normal or decreased GFR 90 2 Kidney damage with mild decrease in GFR 60-89 3 Moderate decrease in GFR 30-59 4 Severe decrease in GFR 15-29 5 Kidney failure <15 (or dialysis) 9 Desirable <150 Borderline high 150-199 High 200-499 Very High >500 10 Desirable <200 Borderline high 200-239 High >239 11 Low <40 Desirable: 40-60 High: >60 12 Desirable: <100 mg/dL Near Optimal: 100-129 mg/dL Borderline High: 130-159 mg/dL High: 160-189 mg/dL Very High: >189 mg/dL 13 Desirable <150 Borderline high 150-199 High 200-499 Very High >500 14 Desirable <200 Borderline high 200-239 High >239 15 Low <40 Desirable: 40-60 High: >60 16 Desirable: <100 mg/dL Near Optimal: 100-129 mg/dL Borderline High: 130-159 mg/dL High: 160-189 mg/dL Very High: >189 mg/dL 17 Because ethnic data is not always readily available, this report includes an eGFR for both -Americans and non- Americans. The National Kidney Disease Education Program (NKDEP) does not endorse the use of the MDRD equation for patients that are not between the ages of 18 and 70, are , have extremes of body size, muscle mass, or nutritional status, or are non- or non-. According to the National Kidney Foundation, irrespective of diagnosis, the stage of the disease is based on the level of kidney function: Stage Description GFR(mL/min/1.73 m(2)) 1 Kidney damage with normal or decreased GFR 90 2 Kidney damage with mild decrease in GFR 60-89 3 Moderate decrease in GFR 30-59 4 Severe decrease in GFR 15-29 5 Kidney failure <15 (or dialysis) 18 non-fasting patient had breakfast at 9am pancakes/gutierrez/egg coffee 19 Reference Range and Interpretation: TnI (ng/mL) Interpretation Less Than 0.03 ng/mL Not supportive of diagnosis of CO 0.03 - 0.50 ng/mL Indeterminate: suggest serial studies if clinically indicated. Greater than 0.5 ng/mL Consistent with diagnosis of CO 20 Please note: The following may produce a false positive D Dimer test: - Rheumatoid factor greater than 60 IU/ml - Plasma hemoglobin greater than 0.05 gm/dl - Bilirubin greater than 50 mg/dl - Lipids greater than 1000 mg/dl - FDP greater than 20 ug/ml 21 Normal Range 180 to 914 Indeterminate Range 145 to 180 Deficient Range <145 22 Because ethnic data is not always readily available, this report includes an eGFR for both -Americans and non- Americans. The National Kidney Disease Education Program (NKDEP) does not endorse the use of the MDRD equation for patients that are not between the ages of 18 and 70, are , have extremes of body size, muscle mass, or nutritional status, or are non- or non-. According to the National Kidney Foundation, irrespective of diagnosis, the stage of the disease is based on the level of kidney function: Stage Description GFR(mL/min/1.73 m(2)) 1 Kidney damage with normal or decreased GFR 90 2 Kidney damage with mild decrease in GFR 60-89 3 Moderate decrease in GFR 30-59 4 Severe decrease in GFR 15-29 5 Kidney failure <15 (or dialysis) 23 Desirable <150 Borderline high 150-199 High 200-499 Very High >500 24 Desirable <200 Borderline high 200-239 High >239 25 Low <40 Desirable: 40-60 High: >60 26 Desirable <100 Near Optimal 100-129 Borderline high 130-159 High 160-189 Very High >189 27 Because ethnic data is not always readily available, this report includes an eGFR for both -Americans and non- Americans. The National Kidney Disease Education Program (NKDEP) does not endorse the use of the MDRD equation for patients that are not between the ages of 18 and 70, are , have extremes of body size, muscle mass, or nutritional status, or are non- or non-. According to the National Kidney Foundation, irrespective of diagnosis, the stage of the disease is based on the level of kidney function: Stage Description GFR(mL/min/1.73 m(2)) 1 Kidney damage with normal or decreased GFR 90 2 Kidney damage with mild decrease in GFR 60-89 3 Moderate decrease in GFR 30-59 4 Severe decrease in GFR 15-29 5 Kidney failure <15 (or dialysis) 28 Reference Range and Interpretation: TnI (ng/mL) Interpretation Less Than 0.03 ng/mL Not supportive of diagnosis of CO 0.03 - 0.50 ng/mL Indeterminate: suggest serial studies if clinically indicated. Greater than 0.5 ng/mL Consistent with diagnosis of CO 29 Acute inflammation: >10.00 30 RUN DATE: 12/14/13 [facility] LAB LIVE PAGE 1 RUN TIME: [address] [place] [address] Specimen Inquiry Name: NICHELLE HARTMAN : [address]: Rakesh Corona DO Acct: [id number] Unit: [id number] AGE: 68 Location: ED Re12/12/13 SEX: F Status: DEP ER SPEC: [id number] MINERVA: 12/12/13-[address] [facility] [address]: Rakesh Corona DO REQ: [id number] RECD: 12/12/13278 STATUS: MARTÍN ARAUJO DR: Tono Tyson MD _ SOURCE: URINE SPDESC: ORDERED: Urine Culture Procedure Result Verified Site Urine Culture Final 12/14/13- 925 ML Organism 1 NORMAL BELIA [place] Count 25-50,000 (Moderate) CFU/ML END OF REPORT * ML=Testing performed at Main Lab DEPARTMENT OF PATHOLOGY, [address] [place] [address] Jed Post M.D. Director [facility] Permit #[id number] Reference Range and Interpretation: TnI (ng/mL) Interpretation Less Than 0.03 ng/mL Not supportive of diagnosis of CO 0.03 - 0.50 ng/mL Indeterminate: suggest serial studies if clinically indicated. Greater than 0.5 ng/mL Consistent with diagnosis of CO 32 Acute inflammation: >10.00 In accordance with FDA guideline, CRP is now reported in mg/L, previous reporting was in mg/dL. 33 Because ethnic data is not always readily available, this report includes an eGFR for both -Americans and non- Americans. The National Kidney Disease Education Program (NKDEP) does not endorse the use of the MDRD equation for patients that are not between the ages of 18 and 70, are , have extremes of body size, muscle mass, or nutritional status, or are non- or non-. According to the National Kidney Foundation, irrespective of diagnosis, the stage of the disease is based on the level of kidney function: Stage Description GFR(mL/min/1.73 m(2)) 1 Kidney damage with normal or decreased GFR 90 2 Kidney damage with mild decrease in GFR 60-89 3 Moderate decrease in GFR 30-59 4 Severe decrease in GFR 15-29 5 Kidney failure <15 (or dialysis) 34 Because ethnic data is not always readily available, this report includes an eGFR for both -Americans and non- Americans. The National Kidney Disease Education Program (NKDEP) does not endorse the use of the MDRD equation for patients that are not between the ages of 18 and 70, are , have extremes of body size, muscle mass, or nutritional status, or are non- or non-. According to the National Kidney Foundation, irrespective of diagnosis, the stage of the disease is based on the level of kidney function: Stage Description GFR(mL/min/1.73 m(2)) 1 Kidney damage with normal or decreased GFR 90 2 Kidney damage with mild decrease in GFR 60-89 3 Moderate decrease in GFR 30-59 4 Severe decrease in GFR 15-29 5 Kidney failure <15 (or dialysis) 35 HDL Interpretation: Undesirable: High Risk: Less than 40 mg/dL Desirable: Low Risk: Greater than 60 mg/dL 36 LDL Interpretation: Low Risk Optimal Level: LDL Less than 100 mg/dL Near or Above Optimal: LDL 100-129 mg/dL Borderline High Risk: LDL 130-159 mg/dL High Risk: LDL 160-189 mg/dL Very High Risk: LDL Greater than 189 mg/dL 37 FASTING 38 HDL Interpretation: Undesirable: High Risk: Less than 40 MG/DL Desirable: Low Risk: Greater than 60 MG/DL 39 LDL Interpretation: Low Risk Optimal Level: LDL Less than 100 MG/DL Near or Above Optimal: LDL 100-129 MG/DL Borderline High Risk: LDL 130-159 MG/DL High Risk: LDL 160-189 MG/DL Very High Risk: LDL Greater than 189 MG/DL 40 Because ethnic data is not always readily available, this report includes an eGFR for both -Americans and non- Americans. The National Kidney Disease Education Program (NKDEP) does not endorse the use of the MDRD equation for patients that are not between the ages of 18 and 70, are , have extremes of body size, muscle mass, or nutritional status, or are non- or non-. According to the National Kidney Foundation, irrespective of diagnosis, the stage of the disease is based on the level of kidney function: Stage Description GFR(mL/min/1.73 m(2)) 1 Kidney damage with normal or decreased GFR 90 2 Kidney damage with mild decrease in GFR 60-89 3 Moderate decrease in GFR 30-59 4 Severe decrease in GFR 15-29 5 Kidney failure <15 (or dialysis) 41 this test was ordered by Dr. Ng, had difficulty routing lab as Dr. Ng' s # is 99, [facility] thinks 99 is nurses schedule. 42 RUN DATE: 09/11/12 [facility] LAB LIVE PAGE 1 RUN TIME: [address] [place], [place] [address] Specimen Inquiry Name: NICHELLE HARTMAN : [address]: Raad Ng MD Acct: [id number] Unit: [id number] AGE: 66 Location: [facility] Re09/06/12 SEX: F Status: REG REF SPEC: [id number] MINERVA: 09/06/12- SUBM DR: Hernandez LOPEZ,Raad Page REQ: [id number] RECD: 09/09/121153 STATUS: KENNY ARAUJO DR: Neisha LOPEZ,Tono Bobby _ ORDERED: LEVEL IV FINAL DIAGNOSIS Colon, random biopsies: A. Large intestinal mucosa with mild architectural disorder, rare lamina propria muciphages, and focal acute superficial colitis. B. No crypt abscesses, granulomas, or dysplasia identified. C. No evidence of microscopic/lymphocytic colitis identified. COMMENTS: The findings are nonspecific and may be related to a subacute or resolving insult. Quiescent chronically inflammatory bowel disease cannot be entirely excluded. Correlation with clinical and colonoscopic findings suggested. CLINICAL HISTORY Chronic diarrhea; screening POST-OPERATIVE DIAGNOSIS Diverticulitis - no polyp or irritable bowel disease; random colon biopsy GROSS DESCRIPTION The specimen is received in formalin labelled Nichelle Hartman, Random Colon Biopsies, and consists of multiple bernal, soft tissue fragments measuring 1.2 x 1.0 x 0.1 cm. Submitted entirely, one cassette. Signed (signature on file) Jed Post MD 1423 END OF REPORT * ML=Testing performed at Main Lab DEPARTMENT OF PATHOLOGY, [address] [place] [address] Jed Post M.D. Director [facility] Permit #[id number] SDS 03-07-12 44 Anion gap measurement may be of limited value in the presence of any alkalosis, especially in a combined acid base disorder. . 45 Because ethnic data is not always readily available, this report includes an eGFR for both -Americans and non- Americans. The National Kidney Disease Education Program (NKDEP) does not endorse the use of the MDRD equation for patients that are not between the ages of 18 and 70, are , have extremes of body size, muscle mass, or nutritional status, or are non- or non-. According to the National Kidney Foundation, irrespective of diagnosis, the stage of the disease is based on the level of kidney function: Stage Description GFR(mL/min/1.73 m(2)) 1 Kidney damage with normal or decreased GFR 90 2 Kidney damage with mild decrease in GFR 60-89 3 Moderate decrease in GFR 30-59 4 Severe decrease in GFR 15-29 5 Kidney failure <15 (or dialysis) 46 CHOLESTEROL INTERPRETATION: Desirable: Less than 200 MG/DL Borderline-High Risk: 200-239 MG/DL High-Risk: 240 MG/DL and over 47 HDL INTERPRETATION: Undesirable: High Risk: Less than 40 MG/DL Desirable: Low Risk: Greater than 60 MG/DL 48 LDL INTERPRETATION: Low Risk Optimal Level: LDL Less than 100 MG/DL Near or Above Optimal: LDL 100-129 MG/DL Borderline High Risk: LDL 130-159 MG/DL High Risk: LDL 160-189 MG/DL Very High Risk: LDL Greater than 189 MG/DL 49 diffuse djd multilevel w normal alignment 50 off lipitor fasting test 51 CHOLESTEROL INTERPRETATION: Desirable: Less than 200 MG/DL Borderline-High Risk: 200-239 MG/DL High-Risk: 240 MG/DL and over 52 HDL INTERPRETATION: Undesirable: High Risk: Less than 40 MG/DL Desirable: Low Risk: Greater than 60 MG/DL 53 LDL INTERPRETATION: Low Risk Optimal Level: LDL Less than 100 MG/DL Near or Above Optimal: LDL 100-129 MG/DL Borderline High Risk: LDL 130-159 MG/DL High Risk: LDL 160-189 MG/DL Very High Risk: LDL Greater than 189 MG/DL 54 Anion gap measurement may be of limited value in the presence of any alkalosis, especially in a combined acid base disorder. . 55 A metabolite of Naproxen, O-desmethylnaproxen, has been shown to interfere with the [place] method for measuring total bilirubin. Samples from patients who have taken Naproxen have shown spurious elevation in total bilirubin levels. 56 Because ethnic data is not always readily available, this report includes an eGFR for both -Americans and non- Americans. The National Kidney Disease Education Program (NKDEP) does not endorse the use of the MDRD equation for patients that are not between the ages of 18 and 70, are , have extremes of body size, muscle mass, or nutritional status, or are non- or non-. According to the National Kidney Foundation, irrespective of diagnosis, the stage of the disease is based on the level of kidney function: Stage Description GFR(mL/min/1.73 m(2)) 1 Kidney damage with normal or decreased GFR 90 2 Kidney damage with mild decrease in GFR 60-89 3 Moderate decrease in GFR 30-59 4 Severe decrease in GFR 15-29 5 Kidney failure <15 (or dialysis) 57 ---- RUN DATE: 04/17/11 [facility] NMI LIVE PAGE 1 RUN TIME: 1447 Specimen Inquiry RUN USER: INTERFACE -- Name: NICHELLE HARTMAN Status: REG REF Re04/14/11 Age/Sex: 65/F Unit#: [id number] Location: [facility] : [birth year] -- Specimen: [id number] SOUT Spec Date: 04/14/[address]: Tono weber MD Spec Type: CYTOLOGY Received: 04/17/11-0958 Copies to: SOURCE ECTOCERVICAL/ENDOCERVICAL Thin Prep with Reflex HPV Test PATIENT INFORMATION ACTUAL COLLECTION DATE: 04/14/11 ? No POST MENOPAUSAL? Yes HYSTERECTOMY? No ADEQUACY OF SPECIMEN Satisfactory for evaluation * Transformation zone component cannot be definitely identified due to prese nce * of atrophy or other hormonal changes. * DIAGNOSIS NEGATIVE FOR INTRAEPITHELIAL LESION OR MALIGNANCY * The Pap Smear is a screening test designed to aid in the detection of premalign ant and malignant conditions of the uterine cervix. It is not a diagnostic procedure a nd should not be used as the sole means of detecting cervical cancer. Both false- positiv e and false-negative reports do occur. Depending on your risk status, a Pap smear gretel uld be obtained and evaluated every one to three years. Initial evaluation performed by Shar VASQUEZ(ASC) 04/17/11 Final Interpretation electronically signed by: Shar VASQUEZ(ASC) 04/17/11 1447 -- -- DEPARTMENT OF PATHOLOGY, [address] [place] [id number] [facility] Permit #[id number] Jed Post M.D. Director Licha Ross M.D. Bag Patcher Dir prescottor -- 58 Anion gap measurement may be of limited value in the presence of any alkalosis, especially in a combined acid base disorder. . 59 Note change in reference range as of 05/07/08. The change was based on recommendations from the [place] [employer]. 60 Please note change in reference range effective 08 . 61 Because ethnic data is not always readily available, this report includes an eGFR for both -Americans and non- Americans. The National Kidney Disease Education Program (NKDEP) does not endorse the use of the MDRD equation for patients that are not between the ages of 18 and 70, are , have extremes of body size, muscle mass, or nutritional status, or are non- or non-. According to the National Kidney Foundation, irrespective of diagnosis, the stage of the disease is based on the level of kidney function: Stage Description GFR(mL/min/1.73 m(2)) 1 Kidney damage with normal or decreased GFR 90 2 Kidney damage with mild decrease in GFR 60-89 3 Moderate decrease in GFR 30-59 4 Severe decrease in GFR 15-29 5 Kidney failure <15 (or dialysis) 62 A metabolite of Naproxen, O-desmethylnaproxen, has been shown to interfere with the [place] method for measuring total bilirubin. Samples from patients who have taken Naproxen have shown spurious elevation in total bilirubin levels. 63 CHOLESTEROL INTERPRETATION: Desirable: Less than 200 MG/DL Borderline-High Risk: 200-239 MG/DL High-Risk: 240 MG/DL and over 64 HDL INTERPRETATION: Undesirable: High Risk: Less than 40 MG/DL Desirable: Low Risk: Greater than 60 MG/DL 65 LDL INTERPRETATION: Low Risk Optimal Level: LDL Less than 100 MG/DL Near or Above Optimal: LDL 100-129 MG/DL Borderline High Risk: LDL 130-159 MG/DL High Risk: LDL 160-189 MG/DL Very High Risk: LDL Greater than 189 MG/DL 66 Anion gap measurement may be of limited value in the presence of any alkalosis, especially in a combined acid base disorder. . 67 Note change in reference range as of 05/07/08. The change was based on recommendations from the [place] [employer]. 68 Please note change in reference range effective 08 . 69 A metabolite of Naproxen, O-desmethylnaproxen, has been shown to interfere with the [place] method for measuring total bilirubin. Samples from patients who have taken Naproxen have shown spurious elevation in total bilirubin levels. 70 Because ethnic data is not always readily available, this report includes an eGFR for both -Americans and non- Americans. The National Kidney Disease Education Program (NKDEP) does not endorse the use of the MDRD equation for patients that are not between the ages of 18 and 70, are , have extremes of body size, muscle mass, or nutritional status, or are non- or non-. According to the [employer], irrespective of diagnosis, the stage of the disease is based on the level of kidney function: Stage Description GFR(mL/min/1.73 m(2)) 1 Kidney damage with normal or decreased GFR 90 2 Kidney damage with mild decrease in GFR 60-89 3 Moderate decrease in GFR 30-59 4 Severe decrease in GFR 15-29 5 Kidney failure <15 (or dialysis) 71 CHOLESTEROL INTERPRETATION: Desirable: Less than 200 MG/DL Borderline-High Risk: 200-239 MG/DL High-Risk: 240 MG/DL and over 72 HDL INTERPRETATION: Undesirable: High Risk: Less than 40 MG/DL Desirable: Low Risk: Greater than 60 MG/DL 73 LDL INTERPRETATION: Low Risk Optimal Level: LDL Less than 100 MG/DL Near or Above Optimal: LDL 100-129 MG/DL Borderline High Risk: LDL 130-159 MG/DL High Risk: LDL 160-189 MG/DL Very High Risk: LDL Greater than 189 MG/DL 74 CHOLESTEROL INTERPRETATION: Desirable: Less than 200 MG/DL Borderline-High Risk: 200-239 MG/DL High-Risk: 240 MG/DL and over 75 HDL INTERPRETATION: Undesirable: High Risk: Less than 40 MG/DL Desirable: Low Risk: Greater than 60 MG/DL 76 LDL INTERPRETATION: Low Risk Optimal Level: LDL Less than 100 MG/DL Near or Above Optimal: LDL 100-129 MG/DL Borderline High Risk: LDL 130-159 MG/DL High Risk: LDL 160-189 MG/DL Very High Risk: LDL Greater than 189 MG/DL 77 ---- RUN DATE: 02/01/09 [facility] NMI LIVE PAGE 1 RUN TIME: 1520 Specimen Inquiry RUN USER: INTERFACE -- Name: NICHELLE HARTMAN Accstan#: [id number] Status: REG REF Re01/29/09 Age/Sex: 63/F Unit#: [id number] Location: [facility] : 47 -- Specimen: [id number] SOUT Spec Date: 01/29/09 Paola Navarro: Tono weber MD Spec Type: CYTOLOGY Received: 02/01/09 Copies to: SOURCE ECTOCERVICAL/ENDOCERVICAL Thin Prep with Reflex HPV Test PATIENT INFORMATION ACTUAL COLLECTION DATE: 01/29/09 ? No POST MENOPAUSAL? Yes HYSTERECTOMY? No PREVIOUS ABNORMAL PAP SMEARS No ADEQUACY OF SPECIMEN Satisfactory for evaluation * Transformation zone component identified * DIAGNOSIS NEGATIVE FOR INTRAEPITHELIAL LESION OR MALIGNANCY * This Pap test was evaluated with the assistance of the MyWebzzPrep Pap Test Imaging System. The Pap Smear is a screening test designed to aid in the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
[2018-12-18] MEDS ORDERED: ceFAZolin 2 GM in NS PREMIX(*) 2 GM/100 ML BAG IVPB ONE (07:48)
[2018-12-18] MEDS ORDERED: Gabapentin CAP(*) 300 MG ONE (07:48)
[2018-12-18] MEDS ORDERED: Buffered Lidocaine 1% SYRIN* 1 ML/SYRINGE INTRADERM ONE (07:48)
[2018-12-18] MEDS ORDERED: Famotidine IV* 10 MG/ML 2 ML (20 mg) ONE (07:48)
[2018-12-18] MEDS ORDERED: Midazolam* 1 MG/ML 5 ML VIAL (5 MG) ONE (07:56)
[2018-12-18] MEDS ORDERED: fentaNYL* 50 MCG/ML 2 ML VIAL (100 MCG VIAL) ONE (07:56)
[2018-12-18] MEDS ORDERED: Lidocaine 1%* 5 ML VIAL ONE (08:35)
[2018-12-18] MEDS ORDERED: ROPIVACAINE 5 MG/ML 30 ML BTL (0.5%) ONE (08:35)
[2018-12-18] MEDS ORDERED: Rocuronium* 10 MG/ML VIAL ONE (09:32)
[2018-12-18] MEDS ORDERED: Ondansetron INJ* 2 MG/ML VIAL ONE (10:08)
[2018-12-18] MEDS ORDERED: DiMENhydriNATE IV* 50 MG/ML VIAL ONE (10:08)
[2018-12-18] MEDS ORDERED: Succinylcholine* 20 MG/ML 10 ML VIAL ONE (10:08)
[2018-12-18] MEDS ORDERED: Propofol* 10 MG/ML 20 ML BTL ONE (10:08)
[2018-12-18] MEDS ORDERED: Dexamethasone IV* 4 MG/ML 1 ML (4 MG) ONE (10:08)
[2018-12-18] MEDS ORDERED: EPHEDrine (Pressors)* 50 MG/ML VIAL ONE (10:08)
[2018-12-18] MEDS ORDERED: Lidocaine 2% PF * 5 ML VIAL ONE (10:11)
[2018-12-18] MEDS ORDERED: Ketorolac INJ* 30 MG/ML 1 ML VIAL ONE (10:11)
[2018-12-18] MEDS ORDERED: Naloxone* 0.4 MG/ML 1 ML VIAL IV PRN (10:47)
[2018-12-18] MEDS ORDERED: DiMENhydriNATE IV* 50 MG/ML VIAL IV PUSH PRN (10:47)
[2018-12-18] MEDS ORDERED: Acetaminophen TAB* 325 MG PO PRN (10:47)
[2018-12-18] MEDS ORDERED: Gabapentin CAP(*) 100 MG PO ONE (10:48)
[2018-12-18] MEDS ORDERED: Gabapentin CAP(*) 100 MG ONE (11:13)
[2018-12-18] MEDS ORDERED: Ondansetron ODT TAB* 4 MG PO PRN (11:33)
[2018-12-18] MEDS ORDERED: Cyclobenzaprine TAB* 10 MG PO PRN (11:33)
[2018-12-18] MEDS ORDERED: traMADol TAB* 50 MG PO PRN (11:33)
[2018-12-18] MEDS ORDERED: diPHENhydraMINE PO* 25 MG PO PRN (11:33)
[2018-12-18] MEDS ORDERED: oxyCODONE TAB* 5 MG TAB PO PRN (11:33)
[2018-12-18] MEDS ORDERED: Magnesium Hydroxide LIQ* 30 ML UDC PO PRN (11:33)
[2018-12-18] MEDS ORDERED: diPHENhydraMINE IV* 50 MG/ML 1 ml VIAL (BENADRYL) IV PRN (11:33)
[2018-12-18] MEDS ORDERED: Temazepam CAP* 15 MG PO PRN (11:33)
[2018-12-18] MEDS ORDERED: Ondansetron INJ* 2 MG/ML VIAL IV PRN (11:33)
[2018-12-18] MEDS ORDERED: Polyethylene Glycol 3350* 17 GM PACKET PO PRN (11:33)
[2018-12-18] MEDS ORDERED: Morphine 4 MG/ML VIAL (1 ml) 4 MG/ML VIAL IV PRN (11:33)
[2018-12-18] MEDS ORDERED: Bisacodyl SUPP* 10 MG SUPP PR PRN (11:33)
[2018-12-18] MEDS ORDERED: HYDROmorphone INJ1* 1 MG/ML SYRINGE ONE (11:36)
[2018-12-18] MEDS: HYDROmorphone INJ1* 1 MG/ML SYRINGE IV PRN ×5 (11:37→12:53)
[2018-12-18] MEDS ORDERED: LORazepam TAB(*) 1 MG PO PRN (11:39)
[2018-12-18] MEDS ORDERED: oxyCODONE TAB* 5 MG TAB ONE ×2 (11:41→12:39)
[2018-12-18] MEDS: oxyCODONE TAB* 5 MG TAB PO PRN ×3 (11:54→20:14)
[2018-12-18] MEDS ORDERED: Acetaminophen TAB* 325 MG PO SCH (12:00)
[2018-12-18] MEDS ORDERED: ceFAZolin 1 GM ADVAN(*) 1 GM in NS 0.9% 50 ML* 50 ML IVPB SCH (12:00)
[2018-12-18] MEDS ORDERED: Acetaminophen TAB* 325 MG ONE (12:39)
[2018-12-18] MEDS ORDERED: Sugammadex * 500 MG/5 ML VIAL IV PUSH ONE (13:01)
[2018-12-18] MEDS: Lactated Ringers 1000 ML Bag* 1,000 ML IV SCH (14:15)
[2018-12-18] MEDS ORDERED: Scopolamine 1.5 mg* PATCH TRANSDERM PRN (15:18)
[2018-12-18] MEDS: HYDROcodone/ACETAMIN 5-325 MG* 1 TAB PO PRN ×2 (16:49→22:31)
[2018-12-18] MEDS: ceFAZolin 1 GM ADVAN(*) 1 GM in NS 0.9% 50 ML* 50 ML IVPB SCH (17:27)
[2018-12-18] MEDS: Morphine INJ* 2 MG/ML 1 ML SYRINGE (TWO MG - NEW SYRINGE VERSION) IV PRN (17:31)
[2018-12-18] MEDS: Atorvastatin* 10 MG TAB PO SCH (20:14)
[2018-12-18] MEDS: QUEtiapine TAB* 25 MG PO SCH (20:14)
[2018-12-18] MEDS: Docusate CAP* 100 MG PO SCH (20:14)
[2018-12-18] MEDS: Acetaminophen TAB* 325 MG PO SCH (20:36)
[2018-12-19] MEDS: Morphine INJ* 2 MG/ML 1 ML SYRINGE (TWO MG - NEW SYRINGE VERSION) IV PRN ×3 (00:04→07:00)
[2018-12-19] MEDS: Lactated Ringers 1000 ML Bag* 1,000 ML IV SCH (01:40)
[2018-12-19] MEDS: ceFAZolin 1 GM ADVAN(*) 1 GM in NS 0.9% 50 ML* 50 ML IVPB SCH ×2 (01:40→10:18)
[2018-12-19] MEDS: oxyCODONE TAB* 5 MG TAB PO PRN ×5 (01:41→22:12)
--- NOTE | 2018-12-19 02:47 | OP ---
DATE OF SURGERY: 12/18/18 - ROOM #349 DATE OF : 47 SURGEON: Trevor Morillo MD PATTERN CLERK: CUCA Pantoja, and Va Ba. ANESTHESIOLOGIST: Dr. Shrestha. ANESTHESIA: General interscalene block. PRE-OP DIAGNOSIS: Right shoulder complete rotator cuff repair with rotator cuff arthropathy. POST-OP DIAGNOSIS: Right shoulder complete rotator cuff repair with rotator cuff arthropathy. OPERATIVE PROCEDURE: Right shoulder open biceps tenodesis and reverse shoulder arthroplasty. COMPLICATIONS: None. ESTIMATED BLOOD LOSS: 150 cc. OUTPUT: Drain x1. IMPLANTS USED: Tornier Reversed Aequalis Ascend Flex size 3B stem with a centered baseplate and +6 poly, a 25 x 30 Aequalis Reversed II baseplate with a 36 mm glenosphere. INDICATIONS: Nichelle Hartman is a 73-year-old female who sustained injury to her shoulder, had a prior rotator cuff repair by Dr. Rios, who has had months and months of shoulder pain. She was diagnosed with full-thickness tear of the supraspinatus tendon as well as part of subscapularis. After extensive discussion of the risks and benefits of operative versus nonoperative treatment , she elected to proceed with surgical treatment. Risks and benefits were discussed in length including, but not limited to, bleeding; infection; damage to nerves, vessels, surrounding structures; wound nonhealing; persistent pain; scarring; stiffness; incomplete relief of symptoms; risks of anesthesia; fracture; dislocation; need for surgery. DESCRIPTION OF PROCEDURE: The patient was greeted in the preoperative area by the attending surgeon. The correct extremity was marked and consent was confirmed. She underwent interscalene nerve block by the anesthesiologist, after which she was brought back to the operating suite. She was placed in supine position on the operating table. She then underwent general anesthesia with endotracheal intubation, after which she was placed in a lazy beach-chair position with a bump under her scapula. She was appropriately secured to the bed. All bony prominences were padded. The right shoulder was then prepped and draped in usual sterile fashion beginning with chlorhexidine soap, scrub, and alcohol wipe and a final prep with ChloraPrep. After appropriate surgical pause indicating site, side, procedure, and administration of antibiotics, the 15 blade was used to make an incision in the deltopectoral interval. Soft tissues were carefully dissected to expose the cephalic vein. The coracoid was palpated and the deltopec was exposed. The clavipectoral fascia was then identified. The CA ligament was then carefully released. The soft tissues were carefully removed. There were abundant adhesions that were present. These had to be released carefully through the subdeltoid to the bursa. Once these were released, the shoulder was then carefully mobilized. The pec was identified and the proximal 1.5 cm was then released. Biceps were then identified and then tenodesed at the appropriate length using heavy nonabsorbable suture to biceps, it was tenotomized proximal to that and traced up to the level of the joint. There was evidence of a full- thickness tear of the supra and infraspinatus tendons as well as the subscapularis. Biceps remained intact as well throughout the joint. The subscap was carefully released, tagged with #5 Ethibond suture for later closure. The head was then gently externally rotated and dislocated. The head and neck was identified, and again, there was a full- thickness massive tear of 3 of the tendons. The neck cut was marked and it was then done with a sagittal saw. The canal was then opened and accessed, and a sizing guide was then placed and then broaching began, beginning with a size 1 up to the size 3. Any excess bone was reamed and then the protection plate was placed and attention was directed to the glenoid. The glenoid was exposed with the posterior retractor. Soft tissues were carefully released including anterior, posterior, and superior labrum. Biceps was removed. Subscap adhesions were then removed. The superior, medial, and inferior glenohumeral ligaments were released. Inferiorly, the inferior ligament was peeled back with care to stay on bone. This exposed the glenoid. Any excess cartilage was carefully removed. A guide pin was then placed in the inferior portion of the glenoid. Size 25 mm baseplate reamer was used to ream it. Then 36 mm footprint reamer was then hand reamed for the glenosphere placement. The cannulated 8 mm drill bit was then used to drill the glenoid. A 6.5 mmm drill was used to drill. Depth was found to be between 25 to 30 mm, size 30 mm was chosen. Drill hole was then packed and then the final implant was then brought to the field and secured with excellent purchase. Two interlocking screws were placed with excellent purchase. The glenosphere was then impacted into position and secured with a set screw. At this point, attention was directed back to the humerus. The head was brought back through the wound and the stem was then appropriately impacted to ensure that it was well fit. The trial centered baseplate and poly were then placed and the joint was then reduced. Forward flexion was found to be about 140, abduction about 90, external rotation to 55. The final implants were chosen and brought to the field. These were then prepared on the back table by the attending surgeon. The 2 transosseous tunnels were then drilled with #5 Ethibond suture placed for subscap closure. The final implant was impacted into position. The shoulder was then reduced again and taken through range of motion and found to be symmetric. The wounds were then copiously irrigated with sterile saline. The subscap was then closed in a horizontal mattress configuration. The wounds were irrigated again and intraarticular drain was then placed. The wounds were irrigated again and the deltopectoral interval was then closed with #2 Ethibond suture. The wounds were irrigated again. The skin was closed in layers with 3-0 Monocryl for deep and subcu. Sterile dressings were applied as well as Cryo/Cuff and UtraSling. She was awoken from anesthesia and transferred to the PACU in stable condition. POSTOPERATIVE PLAN: She will be nonweightbearing for 6 weeks. She will be admitted for 24 hours postop with antibiotics. She will start therapy tomorrow. DVT prophylaxis considered, but deferred due to no previous personal or family history. I will see the patient back in 10 to 14 days. We will follow her in the hospital until she is discharged. [id number]/[facility] #: [id number] ASHLEY
[2018-12-19] MEDS: Acetaminophen TAB* 325 MG PO SCH ×3 (04:03→20:11)
[2018-12-19] MEDS: HYDROcodone/ACETAMIN 5-325 MG* 1 TAB PO PRN (05:28)
[2018-12-19 06:25] LABS: Hematocrit 34 % (33-41); Hemoglobin 11.9 g/dL (12.0-16.0); Platelet Count 217 10^3/uL (150-450)
--- NOTE | 2018-12-19 06:41 | PN ---
Progress Note - Progress Note Date of Service: 12/19/18 Note: Pt seen and examined. Pain intense overnight. Just received pain medication. Denies numbness or tingling. Temp Pulse Resp BP Pulse Ox 99.1 F 80 18 133/73 97 12/19/18 03:25 12/19/18 03:25 12/19/18 05:28 12/19/18 03:25 12/19/18 03:25 NAD. sling and drain in place. Able to flex/ext digits. WWP. SILT grossly distally. 2+ radial pulse Laboratory Results - last 24 hr 12/19/18 05:52 Hgb 11.9 L Hct 34 Plt Count 217 MPV 7.0 L Xrays acceptable A/P 73 yo s/p R shoulder reverse NWB PT/OT drain d/c today pain control. needs to take better PO discharge when pain controlled on orals and stable for discharge
[2018-12-19 06:43] LABS: BUN/Creatinine Ratio 18.5 (8-20); Calcium 9.2 mg/dL (8.6-10.3); EGFR African American 84.1 (>60); EGFR Non-African American 69.5 (>60); Potassium 3.5 mmol/L (3.5-5.0)
[2018-12-19] MEDS: Chlorthalidone TAB* 50 MG PO SCH (09:16)
[2018-12-19] MEDS: Escitalopram * 10 MG TAB PO SCH (09:16)
[2018-12-19] MEDS: Docusate CAP* 100 MG PO SCH ×2 (09:16→20:11)
[2018-12-19] MEDS ORDERED: Ketorolac INJ* 15 MG/ML 1 ML VIAL IV PUSH PRN (09:47)
[2018-12-19] MEDS: Enoxaparin(*) 40 MG/0.4 ML SYR SUBCUT SCH (11:34)
[2018-12-19] MEDS: QUEtiapine TAB* 25 MG PO SCH (18:02)
[2018-12-19] MEDS: Atorvastatin* 10 MG TAB PO SCH (20:11)
[2018-12-20] MEDS: oxyCODONE TAB* 5 MG TAB PO PRN ×3 (02:11→10:41)
[2018-12-20] MEDS: traMADol TAB* 50 MG PO PRN ×2 (03:56→10:11)
[2018-12-20] MEDS: Acetaminophen TAB* 325 MG PO SCH ×3 (03:56→11:48)
[2018-12-20 05:46] LABS: Hematocrit 36 % (33-41); Hemoglobin 12.3 g/dL (12.0-16.0); Mean Platelet Volume 6.8 fL (7.4-10.4); Platelet Count 222 10^3/uL (150-450)
[2018-12-20] MEDS: Docusate CAP* 100 MG PO SCH (08:37)
[2018-12-20] MEDS: Chlorthalidone TAB* 50 MG PO SCH (08:37)
[2018-12-20] MEDS: Escitalopram * 10 MG TAB PO SCH (08:37)
[2018-12-20 09:35] VITALS: BP 152/79
--- NOTE | 2018-12-20 09:44 | PN ---
Progress Note - Progress Note Date of Service: 12/20/18 Note: Pt feeling better today. Pain is better controlled. Denies SOB, CP, pain in back of scapula. Temp Pulse Resp BP Pulse Ox 98.6 F 87 16 152/79 93 12/20/18 07:45 12/20/18 07:45 12/20/18 08:00 12/20/18 07:45 12/20/18 08:00 NAD. AAOx3. sitting in bed. Sling and dressing in place. SILT grossly distally. brisk cap refill. able to flex/ext digits. A/P 73 yo F s/p reverse replacement NWB. sling in place. PT/OT analgesia DVT ppx while in house but not while home home today dressing change today
[2018-12-20] MEDS: Enoxaparin(*) 40 MG/0.4 ML SYR SUBCUT SCH (11:48)
--- NOTE | 2018-12-20 12:05 | DS ---
Orthopedic Discharge Summary - Discharge Summary Date of Admission:12/19/18 Date of Discharge: 12/20/18 Date of Surgery: 12/19/18 Attending Orthopedic Provider: Dr. Morillo Pre-operative Diagnosis: degenerative arthritis right shoulder Operative Procedure: Right reverse total shoulder arthroplasty Condition of Patient: stable History: YANA SALAZAR is a 73 year old F with years of increasingly severe right shoulder pain. Patient has failed conservative management and has elected to undergo a right reverse total shoulder replacement Hospital Course: YANA was admitted to [facility] on 12/19/18. Patient underwent a right reverse shoulder arthroplaty without complication followed by a brief recovery in PACU and transfer to the Short Stay Surgical Unit in stable condition. Our hospitalist service, physical therapy and occupational therapy also participated in this patients care. Post-op day 1: patient was alert and in no acute distress. Dressing was clean, dry and intact. drain removed. Operative extremity full motion all digits right hand, sensation intact to light touch distally, 2+ radial pulse. Post-op day two: dressing was changed, incision was clean, dry and intact. Patient was deemed to be medically and orthopedically stable for discharge home. Pain under better control. Physical therapy goals were met. Home Medications Medication Instructions Recorded Confirmed Type Atorvastatin* [Lipitor 10 MG*] 10 mg PO BEDTIME 11/12/12 12/18/18 History Quetiapine Fumarate [Seroquel] 25 mg PO QPM 11/12/12 12/18/18 History Escitalopram Oxalate [Lexapro 20 30 mg PO QAM 12/12/13 12/18/18 History mg] Chlorthalidone 25 mg PO QAM 04/03/17 12/18/18 History LORazepam [Ativan 0.5 MG TAB] 0.5 - 1 mg PO QPM 12/05/18 12/18/18 History Cyclobenzaprine TAB* [Flexeril 10 5 mg PO TID PRN #42 tab 12/20/18 Rx MG TAB*] oxyCODONE TAB* [Roxycodone TAB 5 5 mg PO Q4H PRN #42 tab MDD 6 12/20/18 Rx mg*] Discharge home today New dressing applied right shoulder Sling right upper extremity May shower /6, light dressing as needed right shoulder Oxycodone 5mg 1 q4, mdd6, #42 and Flexeril 10 mg tid prn, #42, 0 RF rx sent Meds to Beds Follow up with Dr. Morillo as scheduled 10-14 days
== END 2018-12-20 14:00 | disposition home or self-care (01) | DRG 483 ==
LOC: INTOOBSV 12-18 06:37 → AA 12-18 06:37 → OBSVTOIN 12-18 11:33 → INTOOBSV 12-18 11:33 → SSU 12-18 11:33 → OBSVTOIN 12-19 12:33
PROVIDERS: ADMIT Orthopaedic Surgery; ATTEND Orthopaedic Surgery
PROC: 0RRJ00Z Replacement of Right Shoulder Joint with Reverse Ball and Socket Synthetic Substitute, Open Approach (ICD-10-PCS; principal; 2018-12-19)
DX: M19.011 Primary osteoarthritis, right shoulder (principal); M75.121 Complete rotator cuff tear or rupture of right shoulder, not specified as traumatic; I10 Essential (primary) hypertension; E78.5 Hyperlipidemia, unspecified; K58.9 Irritable bowel syndrome, unspecified; G89.29 Other chronic pain; M79.642 Pain in left hand; M79.641 Pain in right hand; M54.9 Dorsalgia, unspecified; M54.2 Cervicalgia; F41.9 Anxiety disorder, unspecified; F32.9 Major depressive disorder, single episode, unspecified; Z96.1 Presence of intraocular lens; Z96.651 Presence of right artificial knee joint; E78.00 Pure hypercholesterolemia, unspecified; M85.80 Other specified disorders of bone density and structure, unspecified site; Z90.49 Acquired absence of other specified parts of digestive tract; Z81.8 Family history of other mental and behavioral disorders; Z83.49 Family history of other endocrine, nutritional and metabolic diseases; Z82.3 Family history of stroke; Z80.7 Family history of other malignant neoplasms of lymphoid, hematopoietic and related tissues; Z83.511 Family history of glaucoma; Z88.8 Allergy status to other drugs, medicaments and biological substances; Z98.42 Cataract extraction status, left eye; Z87.891 Personal history of nicotine dependence; Z98.41 Cataract extraction status, right eye; Z72.89 Other problems related to lifestyle; Z90.89 Acquired absence of other organs; Z91.048 Other nonmedicinal substance allergy status; Z82.49 Family history of ischemic heart disease and other diseases of the circulatory system
CPT/HCPCS: 36415; 80048; 85014; 85018; 85049; A9270-GY; G8978-GP-CJ; G8979-GP-CI; G8987-GO-CJ; G8988-GO-CJ; G8989-GO-CJ; J0330; J0690; J1100; J1170; J1240; J1650; J1885; J2250; J2270; J2405; J2704; J2795; J3010